=== PATIENT | male | born 1960 | race Hispanic/Latino ===

== ENCOUNTER 2017-10-24 06:55 | Inpatient (IN) | payer BC ==
[2017-10-24 06:57] VITALS: BMI 27.8
--- NOTE | 2017-10-24 07:15 | ED PDOC ---
Arrival/HPI - General Chief Complaint: Chest Pain Time Seen by Provider: 10/24/17 07:07 Historian: Patient, Family - History of Present Illness Narrative History of Present Illness (Text): 10/24/17 07:05 Serjio Platt is a 57 year old male, whose past medical history includes atrial fibrillation (on Pradaxa) and hypertension, who presents to the emergency department complaining of chest pain since 1 to 2 hours prior to arrival. Patient reports he woke up fine and as he was watching TV the non-radiating chest pressure began and did not stop. Patient denies fever, shortness of breath , nausea, vomiting, or other complaints. PMD: Dr. larios 10/24/17 15:35 Time/Duration: 1-3 hours Symptom Onset: Sudden Symptom Course: Unchanged Quality: Pressure Activities at Onset: Rest Context: Home Past Medical History - Provider Review Nursing Documentation Reviewed: Yes - Cardiac Hx Pacemaker: Yes (aicd) - Pulmonary Hx Respiratory Disorders: No - Neurological Hx Neurological Disorder: No - HEENT Hx HEENT Disorder: No - Renal Hx Renal Disorder: No - Endocrine/Metabolic Hx Endocrine Disorders: No - Hematological/Oncological Hx Blood Disorders: No - Integumentary Hx Dermatological Disorder: No - Musculoskeletal/Rheumatological Hx Musculoskeletal Disorders: No - Gastrointestinal Hx Gastrointestinal Disorders: No - Genitourinary/Gynecological Hx Genitourinary Disorders: No - Psychiatric Hx Psychophysiologic Disorder: No Hx Substance Use: No - Surgical History Hx Joint Replacement: Yes (left hip) - Anesthesia Hx Anesthesia: No Family/Social History - Physician Review Nursing Documentation Reviewed: Yes Family/Social History: Unknown Family HX Smoking Status: Unknown If Ever Smoked Hx Alcohol Use: No Hx Substance Use: No Allergies/Home Meds Allergies/Adverse Reactions: Allergies No Known Allergies Allergy (Verified 10/24/17 12:05) Home Medications: Home Meds Medication Instructions Recorded Confirmed Unobtainable 10/24/17 10/24/17 Review of Systems - Review of Systems Constitutional: absent: Fevers Respiratory: absent: SOB, Cough Cardiovascular: Chest Pain (pressure) Gastrointestinal: absent: Abdominal Pain, Diarrhea, Nausea, Vomiting Genitourinary Male: absent: Dysuria Musculoskeletal: absent: Back Pain Neurological: absent: Headache Endocrine: absent: Diaphoresis Physical Exam Vital Signs Reviewed: Yes Vital Signs Temp Pulse Resp BP Pulse Ox 10/24/17 12:00 97 F L 78 20 128/91 H 10/24/17 10:52 76 136/94 H 10/24/17 10:03 64 16 136/94 H 98 10/24/17 09:43 67 16 135/91 H 98 10/24/17 08:00 66 18 140/90 98 10/24/17 07:10 97.9 F 77 24 140/92 H 100 Blood Pressure: Hypertensive Pulse: Regular Respiratory Rate: Normal Appearance: Positive for: Well-Appearing, Non-Toxic, Comfortable Pain Distress: None Mental Status: Positive for: Alert and Oriented X 3 - Systems Exam Head: Present: Atraumatic, Normocephalic Pupils: Present: PERRL Extroacular Muscles: Present: EOMI Conjunctiva: Present: Normal Mouth: Present: Moist Mucous Membranes Respiratory/Chest: Present: Clear to Auscultation, Good Air Exchange. No: Respiratory Distress, Accessory Muscle Use Cardiovascular: Present: Regular Rate and Rhythm, Normal S1, S2. No: Murmurs Neurological: Present: GCS=15, CN II-XII Intact, Speech Normal Skin: Present: Warm, Dry, Normal Color. No: Rashes Psychiatric: Present: Alert, Oriented x 3, Normal Insight, Normal Concentration Medical Decision Making ED Course and Treatment: 10/24/17 EKG: Ordered, reviewed, and independently interpreted the EKG. Rate : 72 BPM Rhythm : atrial fibrillation Interpretation : No ST-segment elevations or depressions, no T-wave inversions, normal intervals. 10/24/17 08:[address] Larios who accepts patient for chest pain observation. 10/24/17 08:30 Chest X-ray: Creator : Diego Villar MD FINDINGS: LUNGS: No active pulmonary disease. PLEURA: No significant pleural effusion identified, no pneumothorax apparent. CARDIOVASCULAR: No radiographic findings to suggest acute or significant cardiovascular disease. Position/ configuration of pacemaker\AICD device: Satisfactory. OSSEOUS STRUCTURES: No significant abnormalities. VISUALIZED UPPER ABDOMEN: Normal. OTHER FINDINGS: None. IMPRESSION: No active disease. - Lab Interpretations Lab Results: 10/24/17 07:05 10/24/17 07:05 Lab Results 10/24/17 07:05: Sodium 140, Potassium 3.9, Chloride 103, Carbon Dioxide 23, Anion Gap 17, BUN 21, Creatinine 0.9, Est GFR ( Amer) > 60, Est GFR (Non- Af Amer) > 60, Random Glucose 170 H, Calcium 10.0, Magnesium 1.7, Total Bilirubin 0.6, AST 26, ALT 23, Alkaline Phosphatase 65, Lactate Dehydrogenase 490, Total Creatine Kinase 45, Troponin I 0.03, Total Protein 7.2, Albumin 4.2, Globulin 3.0, Albumin/Globulin Ratio 1.4 10/24/17 07:05: PT 13.2 H, INR 1.20 H, APTT 24.2 L 10/24/17 07:05: WBC 10.3, RBC 4.93, Hgb 15.1, Hct 45.1, MCV 91.5, MCH 30.6, MCHC 33.5, RDW 12.7, Plt Count 284, MPV 9.6, Gran % 55.9, Lymph % (Auto) 33.5, Weber % (Auto) 6.8 H, Eos % (Auto) 3.4, Baso % (Auto) 0.4, Gran # 5.75, Lymph # 3.5 H, Weber # 0.7 H, Eos # 0.4, Baso # 0.04 I have reviewed the lab results: Yes - RAD Interpretation Radiology Orders: 10/24/17 07:12 CHEST PORTABLE [RAD] Stat [employer]: Radiologist - EKG Interpretation Interpreted by ED Physician: Yes Type: 12 lead EKG - Medication Orders Current Medication Orders: Acetaminophen (Tylenol 325mg Tab) 650 mg PO Q6H PRN PRN Reason: Fever >100.4 F Aspirin (Aspirin Chewable) 81 mg PO DAILY [facility] Atorvastatin Calcium (Lipitor) 20 mg PO DIN SARAH Clopidogrel Bisulfate (Plavix) 75 mg PO DAILY [facility] Heparin Sodium/Dextrose (Heparin 25,000 Units/250ml In D5w) 25,000 units in 250 mls @ 13.608 mls/hr IV .[id number] PRN; Protocol; 15 UNITS/KG/HR PRN Reason: ADJUST RATE PER PROTOCOL Last Admin: 10/24/17 09:42 Dose: 15 units/kg/hr, 13.608 mls/hr eMAR Start Stop Document 10/24/17 09:42 YP (Rec: 10/24/17 09:42 YP [id number]) Intravenous Solution Start Date 12/11/17 Start Time 09:42 Titration Intervention Document 12/11/17 09:42 YP (Rec: 10/24/17 09:42 YP [id number]) Titration Intake Waste Amount 0 Container Volume 250 Titration Dosing Titration Dose 15 IV Rate 13.608 Intake/Decrease Started Lisinopril (Zestril) 10 mg PO DAILY [facility] Last Admin: 10/24/17 10:52 Dose: 10 mg MAR Pulse and Blood Pressure Document 10/24/17 10:52 SC (Rec: 10/24/17 10:52 SC [facility]) Pulse Pulse Rate (60-90) 76 Blood Pressure Blood Pressure (100/60-150/90) 136/94 Nitroglycerin (Nitro-Bid 2% Oint) 1 ea TOP Q4H [facility] Last Admin: 10/24/17 13:27 Dose: 1 ea Sotalol HCl (Betapace) 80 mg PO BID [facility] Last Admin: 10/24/17 10:52 Dose: Discontinued Medications Aspirin (Aspirin) 325 mg PO STAT STA Stop: 10/24/17 07:14 Last Admin: 10/24/17 07:37 Dose: 325 mg Clopidogrel Bisulfate (Plavix) 300 mg PO ONCE ONE Stop: 10/24/17 09:16 Last Admin: 10/24/17 09:42 Dose: 300 mg Nitroglycerin (Nitrostat Sl Tab) 0.4 mg SL STAT STA Stop: 10/24/17 08:00 Last Admin: 10/24/17 08:06 Dose: 0.4 mg - Scribe Statement The provider has reviewed the documentation as recorded by the Jana Joyner Provider Scribe Attestation: All medical record entries made by the Jana were at my direction and personally dictated by me. I have reviewed the chart and agree that the record accurately reflects my personal performance of the history, physical exam, medical decision making, and the department course for this patient. I have also personally directed, reviewed, and agree with the discharge instructions and disposition. Disposition/Present on Arrival - Present on Arrival Any Indicators Present on Arrival: No History of DVT/PE: No History of Uncontrolled Diabetes: No Urinary Catheter: No History of Decub. Ulcer: No History Surgical Site Infection Following: None - Disposition Have Diagnosis and Disposition been Completed?: Yes Diagnosis: Chest pain Disposition: HOSPITALIZED Disposition Time: 15:36 Condition: STABLE
[2017-10-24 07:22] LABS: BASO # 0.04 K/mm3 (0.0-2.0); BASO % 0.4 % (0.0-3.0); EOS # 0.4 (0.0-0.7); EOS % 3.4 % (1.5-5.0); GRAN # 5.75 (1.4-6.5); GRAN % 55.9 % (50.0-68.0); HEMATOCRIT 45.1 % (42.0-52.0); LYMPH # 3.5 (1.2-3.4); LYMPH % 33.5 % (22.0-35.0); MEAN CELL VOLUME 91.5 fl (80.0-105.0); MEAN CORPUSCULAR HEMOGLOBIN 30.6 pg (25.0-35.0); MEAN CORPUSCULAR HGB CONC 33.5 g/dl (31.0-37.0); MEAN PLATELET VOLUME 9.6 fl (7.0-11.0); MONO # 0.7 (0.1-0.6); MONO % 6.8 % (1.0-6.0); RED CELL DISTRIBUTION WIDTH 12.7 % (11.5-14.5); WHITE BLOOD COUNT 10.3 10^3/ul (4.5-11.0)
[2017-10-24 07:41] LABS: INR 1.2 (0.93-1.08); PARTIAL THROMBOPLASTIN TIME 24.2 Seconds (25.1-36.5)
[2017-10-24 07:42] LABS: ALB/GLOB RATIO 1.4 (1.1-1.8); ALKALINE PHOSPHATASE 65 U/L (38-126); ALT/SGPT 23 U/L (7-56); AST/SGOT 26 U/L (17-59); BILIRUBIN,TOTAL 0.6 mg/dL (0.2-1.3); BLOOD UREA NITROGEN 21 mg/dL (7-21); CARBON DIOXIDE 23 mmol/L (21-33); CHLORIDE 103 mmol/L (98-107); GFR AFRICAN-AMERICAN > 60; GLUCOSE,RANDOM 170 mg/dL (70-110); MAGNESIUM 1.7 mg/dL (1.7-2.2); POTASSIUM 3.9 mmol/L (3.6-5.0); SODIUM 140 mmol/L (132-148); TOTAL PROTEIN 7.2 g/dL (5.8-8.3)
[2017-10-24 07:52] LABS: TROPONIN I 0.03 ng/mL
--- NOTE | 2017-10-24 08:25 | RAD ---
HISTORY: Chest pain. Portable study 07:23 COMPARISON: No prior. FINDINGS: LUNGS: No active pulmonary disease. PLEURA: No significant pleural effusion identified, no pneumothorax apparent. CARDIOVASCULAR: No radiographic findings to suggest acute or significant cardiovascular disease. Position/ configuration of pacemaker device: Satisfactory. OSSEOUS STRUCTURES: No significant abnormalities. VISUALIZED UPPER ABDOMEN: Normal. OTHER FINDINGS: None. IMPRESSION: No active disease.
[2017-10-24 09:09] LABS: PH,URINE 5.5 (4.7-8.0); URINE BILIRUBIN NEGATIVE (NEGATIVE); URINE BLOOD NEGATIVE (NEGATIVE); URINE GLUCOSE (UA) NEGATIVE (NEGATIVE); URINE KETONE NEGATIVE (NEGATIVE); URINE LEUKOCYTE ESTERASE NEGATIVE Leu/uL (NEGATIVE); URINE PROTEIN 30 mg/dL (<30 mg/dL); URINE UROBILINOGEN 0.2 E.U./dL (<1 E.U./dL)
[2017-10-24 09:10] LABS: URINE APPEARANCE CLEAR (CLEAR); URINE COLOR YELLOW (YELLOW)
[2017-10-24 09:15] LABS: URINE AMORPHOUS SEDIMENT TRACE; URINE BACTERIA MANY (NEG); URINE RBC 0 - 2 /hpf (0-2); URINE WBC 0 - 2 /hpf (0-6)
[2017-10-24] MEDS: Heparin 25,000units in D5W 25,000 UNITS/250 ML BAG IV PRN (09:42)
[2017-10-24] MEDS: Nitroglycerin 2% Ointment Foilpak UD TOP SCH ×4 (09:42→22:01)
--- NOTE | 2017-10-24 11:42 | CON ---
DATE: 10/24/2017 INDICATIONS: Chest pain, rule out myocardial infarction. HISTORY OF PRESENT ILLNESS: This is a 57-year-old male known to me, admitted through the emergency room this morning after he came in complaining of short history of mid chest discomfort, described as a pressure discomfort. It felt uncomfortable. It was not associated with shortness of breath or diaphoresis. It did not radiate. He came to the emergency room. He was given nitroglycerin with moderate relief. There was still some residual discomfort at this time in the emergency room. There was no shortness of breath, orthopnea, PND, syncope, presyncope, lightheadedness, dizziness, vertigo, palpitations, edema, claudication, fever, chills, cough, sputum production, hemoptysis, abdominal pain, nausea, vomiting, diarrhea, constipation, or melena. About a month ago, he underwent a left total hip replacement. This apparently was an uncomplicated procedure. He took Lovenox for a few weeks and then switched over to Pradaxa, beginning yesterday. He has known coronary artery disease with remote coronary interventions. He has an ICD with a history of myocardial infarction with LV dysfunction, chronic atrial fibrillation, on Pradaxa, osteoarthritis, right knee surgery, hyperlipidemia, recent left total hip replacement. There was no history of congestive heart failure, stroke, TIA, diabetes, or gout. MEDICATIONS: At the time of admission include aspirin, sotalol, lisinopril, Pradaxa, Pravachol. ALLERGIES: THERE WERE NO MEDICATION ALLERGIES. SOCIAL HISTORY: He lives at home. He is ambulatory. He does not smoke cigarettes. He does not drink alcohol significantly. FAMILY HISTORY: Noncontributory. REVIEW OF SYSTEMS: Ten-point review of systems otherwise unremarkable, except as noted above. PHYSICAL EXAMINATION: GENERAL: He is a well-developed male, lying on a stretcher in the emergency room in the presence of his . VITAL SIGNS: Unremarkable. He is in atrial fibrillation at 66 beats per minute. Temperature 97.9, blood pressure 140/90, respirations 18, and O2 sat 98% on room air. HEENT: Reveals no neck vein distention, thyromegaly, or carotid bruit. Mucous membranes moist. Conjunctivae pink. NECK: Supple. LUNGS: [place] are clear throughout. HEART: Reveals normal first and second heart sounds. There was an irregular rhythm. Soft systolic murmur along the left sternal border. PMI not displaced. ABDOMEN: Soft. Bowel sounds are present. No mass, organomegaly, tenderness, rebound, guarding, CVA tenderness, or palpable abdominal aortic aneurysm. EXTREMITIES: Reveals no cyanosis, clubbing, or edema. NEUROLOGIC: Awake, alert, and oriented. PSYCHIATRIC: Normal as to mood and affect. SKIN: Warm and dry. No rash or cellulitis. LABORATORY DATA AND IMAGING: An EKG demonstrates atrial fibrillation with a paced beat, there was poor R-wave progression. T-waves are peaked in leads V2, V3, V4. No ST depressions noted. Compared with old office EKG, there were only minor differences in the V2, V3, and V4 leads, consistent with an old inferior and old anteroseptal myocardial infarction. A chest x-ray reveals no active disease. CBC is unremarkable. PT, INR, and PTT are 13.2, 1.2, and 24.2 respectively. Electrolytes, BUN, creatinine unremarkable. Random blood sugar 170, magnesium 1.7. LFTs normal. CK 45, troponin 0.03. IMPRESSION: Serjio Platt is a 57-year-old man with known coronary artery disease, status post remote coronary interventions, admitted with chest pain, which is consistent with ischemic origin. The initial troponin is negative. His electrocardiogram is abnormal, but not much different than prior office electrocardiogram. He has a recent uneventful left hip replacement and chronic atrial fibrillation on Pradaxa (dose taken this AM) with implantable cardioverter-defibrillator in place. He will be admitted to a telemetry bed. He got aspirin and sublingual nitroglycerin. I will give him Nitropaste. I will resume his sotalol, atorvastatin in lieu of pravastatin, lisinopril. I will give him Plavix 300 mg and 75 mg daily starting tomorrow. I will put him on heparin drip without bolus since he had a dose of Pradaxa today. I will review his office records. We will repeat his troponin level in several hours and in the morning. At this point, I am considering early cardiac catheterization, but given his recent Pradaxa dose, we will try to wait till Tuesday morning if he remains stable. If his troponins are elevated, we may consider earlier intervention. I will get an echocardiogram. We will monitor stool for occult blood. We will monitor I's and O's and daily labs. He can be out of bed to chair. I will give him Nitropaste. I will follow along with you. I will make additional recommendations based on his clinical course. Derick Mcelroy MD MTDD
[2017-10-24] MEDS ORDERED: Pneumococcal 23-Valent Vaccine IM ONE (16:55)
[2017-10-24] MEDS ORDERED: Influenza Vaccine 60 mcg/0.5 mL SYR (4YR UP) IM ONE (16:55)
--- NOTE | 2017-10-25 00:31 | CARD ---
APPROVED REPORT EKG Measurement Heart [id number] <Conclusion> Atrial fibrillation with premature ventricular or aberrantly conducted complexes Inferior infarct, age undetermined Anteroseptal infarct, age undetermined Abnormal ECG
[2017-10-25] MEDS: Nitroglycerin 2% Ointment Foilpak UD TOP SCH ×2 (00:48→04:56)
[2017-10-25] MEDS: Heparin 25,000units in D5W 25,000 UNITS/250 ML BAG IV PRN ×2 (02:03→21:43)
--- NOTE | 2017-10-25 02:29 | HP ---
HISTORY OF PRESENT ILLNESS: The patient is a 57-year-old known to me from office practice, came to emergency room because of chest pressure. He states around 6 o'clock this morning, he was watching TV, he had a little bowl of cereal, started to have chest discomfort, never had this discomfort before associated with shortness of breath and it was very uncomfortable feeling. Denies any nausea or vomiting. There was no diaphoresis. He was given nitroglycerin in the emergency room with some relief. No history of fever or chills. No history of cough or congestion. PAST MEDICAL HISTORY: Significant for: 1. Chronic AFib. 2. Defibrillator replacement. 3. History of left hip replacement. 4. He had defibrillator placed because of LV function and poor ejection fraction. ALLERGIES: HE IS NOT ALLERGIC TO ANY MEDICATIONS. MEDICATION AT HOME: He is on Pradaxa and sotalol 120 b.i.d. He is on Viagra 50 mg daily, lisinopril 10 mg daily, and Percocet as needed. SOCIAL HISTORY: Denies smoking or drinking. socially drink. REVIEW OF SYSTEMS: Significant for chest discomfort. PHYSICAL EXAMINATION: GENERAL: He is alert, awake, oriented, and communicative. VITAL SIGNS: Afebrile, pulse 70, respirations 20, and blood pressure 128/91. LUNGS: Bilateral good airflow. No rhonchi or crackle. HEART: S1 and S2 audible. ABDOMEN: Soft, obese, and nontender. No rebound. No guarding. NEUROLOGIC: The patient is awake, alert, oriented, and communicative. LABORATORY DATA: WBC is 10.3, hemoglobin is 15.1, hematocrit is 45.1, and platelet of 284. PTT is 73.3. Chemistry, troponin first one is 0.03, follow up is 1.08. Sodium 140, potassium 3.9, chloride 103, CO2 of 23, BUN 21, creatinine 0.9, and blood sugar 170. LFTs are within normal limits. Urinalysis is unremarkable. X-ray of chest is negative for any infiltrate. ASSESSMENT: 1. Non-ST elevation myocardial infarction with positive troponin. 2. History of myocardial infarction in the past with defibrillator replacement. 3. Chronic atrial fibrillation. 4. Hypertension. 5. Recent left hip replacement. PLAN: The patient is currently on aspirin. He is on sotalol 80 mg twice a day. Currently, he is on heparin, statins and I have started him on nitrates. He is on Plavix and add Protonix. Continue on lisinopril and follow up this patient in a.m. Sadia Larios MD
[2017-10-25] MEDS ORDERED: Benzocaine/Menthol (Cepacol) Lozenge MT STA (03:22)
[2017-10-25] MEDS: Pantoprazole 40 mg EC Tab PO SCH (05:28)
[2017-10-25 07:24] LABS: TROPONIN I 11.9 ng/mL
--- NOTE | 2017-10-25 07:56 | CARD ---
APPROVED REPORT EXAM: Two-dimensional and M-mode echocardiogram with Doppler and color Doppler. Other Information Quality : AverageRhythm : INDICATION Chest Pain 2D DIMENSIONS Left Atrium (2D)4.0 (1.6-4.0cm)IVSd1.2 (0.7-1.1cm) LVDd5.3 (3.9-5.9cm)PWd1.2 (0.7-1.1cm) LVDs4.4 (2.5-4.0cm)FS (%) 15.4 % LVEF (%)32.0 (>50%) M-Mode DIMENSIONS Aortic Root3.60 (2.2-3.7cm)Aortic Cusp Exc.1.90 (1.5-2.0cm) Aortic Valve AoV Peak Prqqvqne851.0cm/s Mitral Valve E/A ratio0.0 TDI E/Lateral E'0.0E/Medial E'0.0 Pulmonary Valve PV Peak Fztxptcl70.8cm/sPV Peak Grad.1mmHg Tricuspid Valve TR Peak Ppayctks978xf/sRAP [id number] Peak Gr.15mmHg [id number] LEFT VENTRICLE The left ventricle is normal size. There is normal left ventricular wall thickness. Left ventricle systolic function is mildly to moderately impaired. The Ejection Fraction is 30-35%. The apical segment is akinetic RIGHT VENTRICLE There is a pacemaker/ICD lead in the right ventricle. ATRIA The left atrium size is normal. The right atrium size is normal. The interatrial septum is intact with no evidence for an atrial septal defect. AORTIC VALVE The aortic valve is normal in structure. MITRAL VALVE The mitral valve is normal in structure. Mitral regurgitation is mild. TRICUSPID VALVE The tricuspid valve is normal in structure. There is trace tricuspid regurgitation. PULMONIC VALVE The pulmonary valve is normal in structure. GREAT VESSELS The aortic root is normal in size. PERICARDIAL EFFUSION There is no pericardial effusion. <Conclusion> The left ventricle is normal size. There is normal left ventricular wall thickness. Left ventricle systolic function is mildly to moderately impaired. The Ejection Fraction is 30-35%. The apical segment is akinetic Mitral regurgitation is mild. There is trace tricuspid regurgitation.
--- NOTE | 2017-10-25 08:14 | CP.PCM.PN ---
Subjective - Date & Time of Evaluation Date of Evaluation: 10/25/17 Time of Evaluation: 07:00 - Subjective Subjective: Stable on 2R. He feels well except for TODD due to nitrates. NO CP or SOB. V/S noted. AF PE: Lungs: clear Cor: irreg, S1S2 bd.: soft Ext.: no edema Neuro.: alert I/O N/A Echo: Mild/mod LVD with apical akinesis c/e infarct. See report Labs noted: trop today 11.9, PTT= 68.2 Objective - Vital Signs/Intake and Output Vital Signs (last 24 hours): Temp Pulse Resp BP Pulse Ox 98.2 F 92 H 18 136/69 97 10/25/17 05:56 10/25/17 05:57 10/25/17 05:56 10/25/17 05:56 10/25/17 05:56 Intake and Output: 10/25/17 10/25/17 06:59 18:59 Intake Total 593 Balance 593 - Medications Medications: Current Medications Acetaminophen (Tylenol 325mg Tab) 650 mg PO Q6H PRN PRN Reason: Fever >100.4 F Last Admin: 10/25/17 04:34 Dose: 650 mg Acetaminophen (Tylenol 325mg Tab) 650 mg PO Q6H PRN PRN Reason: Fever >100.4 F Aspirin (Aspirin Chewable) 81 mg PO DAILY [facility] Atorvastatin Calcium (Lipitor) 20 mg PO DIN [facility] Last Admin: 10/24/17 17:53 Dose: 20 mg Clopidogrel Bisulfate (Plavix) 75 mg PO DAILY [facility] Heparin Sodium/Dextrose (Heparin 25,000 Units/250ml In D5w) 25,000 units in 250 mls @ 13.608 mls/hr IV .[id number] PRN; Protocol; 15 UNITS/KG/HR PRN Reason: ADJUST RATE PER PROTOCOL Last Admin: 10/25/17 02:03 Dose: 15 units/kg/hr, 13.608 mls/hr Lisinopril (Zestril) 10 mg PO DAILY [facility] Last Admin: 10/24/17 10:52 Dose: 10 mg Nitroglycerin (Nitro-Bid 2% Oint) 1 ea TOP Q4H [facility] Last Admin: 10/25/17 04:56 Dose: Not Given Ondansetron HCl (Zofran Inj) 4 mg IVP Q6H PRN PRN Reason: Nausea/Vomiting Pantoprazole Sodium (Protonix Ec Tab) 40 mg PO 0600 [facility] Last Admin: 10/25/17 05:28 Dose: 40 mg Sotalol HCl (Betapace) 80 mg PO BID [facility] Last Admin: 10/24/17 17:53 Dose: 80 mg - Labs Labs: PT 13.2 SECONDS (9.4-12.5) H 10/24/17 07:05 INR 1.20 (0.93-1.08) H 10/24/17 07:05 APTT 68.2 Seconds (25.1-36.5) H 10/25/17 05:30 Assessment and Plan - Assessment and Plan (Free Text) Assessment: CP/NSTEMI/ probably apical infarct H/O CAD/UT/LVD/ICD Chronic AF on Pradaxa, last dose 12 AM S/P recent Left THR Remote right knee surgery Plan: Check ECG today Continue tel OOB to chair/BR priv. D/C nitrates Heparin by PTT's Continue: ASA, Plavix, Lisinopril, atorvastatin, sotolol Cardiac cath/possible PCI tomorrow AM. NPO after MN, except meds. Additional recs to follow cath.
--- NOTE | 2017-10-25 17:35 | CARD ---
APPROVED REPORT EKG Measurement Heart [id number] <Conclusion> Atrial fibrillation Left axis deviation Inferior infarct, age undetermined Anteroseptal infarct, age undetermined Abnormal ECG
--- NOTE | 2017-10-25 23:08 | PN ---
DATE: SUBJECTIVE: The patient is an 57-year-old, seen and examined, lying in bed, seems to be comfortable. No chest pain. No shortness of breath. Eating and tolerating. PHYSICAL EXAMINATION VITAL SIGNS: He is afebrile, pulse 82, respirations 20, blood pressure 112/86. LUNGS: Bilateral good airflow. No rhonchi or crackle. HEART: S1 and S2 audible. Irregular rate control. ABDOMEN: Soft, nontender. No rebound. No guarding. NEUROLOGIC: He is awake, alert, oriented, communicative. EXTREMITIES: Walks with cane since he has recent left total hip replacement. LABORATORY DATA: His PTT is 68.2. Chemistries; troponin is 11.90. ASSESSMENT: 1. Non-ST elevation myocardial infarction. 2. Hypertension. 3. Hyperlipidemia. 4. Chronic atrial fibrillation. PLAN: Currently, the patient is on aspirin 81 daily, sotalol 80 mg twice a day. He is getting heparin. He is on atorvastatin and he is being scheduled for cardiac cath in a.m. Sadia Larios MD
[2017-10-26] MEDS: Pantoprazole 40 mg EC Tab PO SCH (05:54)
[2017-10-26 06:29] LABS: BASO # 0.05 K/mm3 (0.0-2.0); BASO % 0.5 % (0.0-3.0); EOS # 0.2 (0.0-0.7); EOS % 1.7 % (1.5-5.0); GRAN # 7.42 (1.4-6.5); GRAN % 66.9 % (50.0-68.0); HEMATOCRIT 43.6 % (42.0-52.0); LYMPH # 2.6 (1.2-3.4); LYMPH % 23.3 % (22.0-35.0); MEAN CELL VOLUME 92.2 fl (80.0-105.0); MEAN CORPUSCULAR HEMOGLOBIN 31.3 pg (25.0-35.0); MEAN CORPUSCULAR HGB CONC 33.9 g/dl (31.0-37.0); MEAN PLATELET VOLUME 9.9 fl (7.0-11.0); MONO # 0.8 (0.1-0.6); MONO % 7.6 % (1.0-6.0); RED CELL DISTRIBUTION WIDTH 12.7 % (11.5-14.5); WHITE BLOOD COUNT 11.1 10^3/ul (4.5-11.0)
[2017-10-26 06:41] LABS: INR 1.22 (0.93-1.08); PARTIAL THROMBOPLASTIN TIME 63.1 Seconds (25.1-36.5)
[2017-10-26 06:54] LABS: TROPONIN I 6.25 ng/mL
[2017-10-26 07:02] LABS: BLOOD UREA NITROGEN 16 mg/dL (7-21); CALCIUM 9.8 mg/dL (8.4-10.5); CARBON DIOXIDE 30 mmol/L (21-33); CHLORIDE 103 mmol/L (98-107); GFR AFRICAN-AMERICAN > 60; GLUCOSE,RANDOM 108 mg/dL (70-110); POTASSIUM 3.7 mmol/L (3.6-5.0); SODIUM 139 mmol/L (132-148)
[2017-10-26] MEDS ORDERED: Iodixanol 320 MG/ML 200 ML BOTTLE IV ONE (09:09)
[2017-10-26] MEDS ORDERED: Lidocaine 2% Inj (20ml) ONE (09:09)
[2017-10-26] MEDS ORDERED: Iohexol 350mgl/ml 50 ML ONE (09:22)
[2017-10-26] MEDS ORDERED: Phenylephrine 10 mg/ml Inj ONE (09:22)
[2017-10-26] MEDS ORDERED: Iodixanol 320 MG/ML 100 ML BOTTLE IV ONE (09:22)
[2017-10-26] MEDS ORDERED: Midazolam 2 MG/2 ML VIAL ONE ×2 (09:41→09:46)
[2017-10-26] MEDS ORDERED: Nitroglycerin 50mg in D5W 50 MG/250 ML BOTTLE IV ONE (10:09)
[2017-10-26] MEDS ORDERED: Sodium Chloride 0.9% 1,000 ML IV SCH (11:00)
--- NOTE | 2017-10-26 14:15 | CARDCATH ---
PROCEDURE DATE: 10/26/2017 PROCEDURES: 1. Selective left and right coronary angiography. 2. Left ventriculography. 3. PCI of mid LAD with drug-eluting stents. 4. Right femoral arteriography. 5. Mynx deployment. HISTORY: This is a 57-year-old man with known coronary artery disease, status post prior PCI, admitted with non-ST segment elevation myocardial infarction. Cardiac catheterization was recommended. INDICATION: Non-ST segment elevation myocardial infarction. FINDINGS: HEMODYNAMICS: The aortic pressure was 120/76, left ventricular pressure 120/15. CORONARY ANATOMY: 1. The left main stem was normal. 2. Left anterior descending artery had mild disease proximally and had a complex in-stent restenosis in the mid vessel. Takeoff of the first diagonal branch was also involved. The first diagonal branch was euzyr-bv-pulgssrd size vessel with 50% stenosis in its proximal segment. 3. There was poor filling of the distal LAD and distal lesions cannot be excluded. 4. The left circumflex artery and its branches had no significant disease. 5. The right coronary artery and its branches had no significant disease either and the coronary circulation was codominant. LEFT VENTRICULOGRAPHY: Hand injection was performed in the left ventricle revealing mildly reduced LV systolic function with apical hypokinesis and overall ejection fraction 45%. CORONARY INTERVENTION: Given the above findings, attempted PCI of the mid LAD was then performed. Total of 5000 units of intravenous heparin was administered and ACT was rated at 300 seconds during the procedure. A 3.5 EBU guide catheter was utilized and the lesion in the LAD successfully crossed with the use of a [place] wire. Following this, initial inflations were performed within the previously placed stent with the use of 3.0 x 12 mm NC Sprinter balloon. Following this, a 3.0 x 22 mm Resolute drug-eluting stent was advanced into the stented segment. This was positioned in the more distal area of the prior stents. This was inflated to 14 atmospheres. Following this, the stent balloon was removed and the prior 3.0 x 12 mm NC balloon was advanced and multiple inflations performed within the stented segment to 16 atmospheres. There was 0% residual stenosis following the intervention. LÓPEZ grade 3 flow was present at the end of the procedure. The diagonal branch did appear to be somewhat impinged, but LÓPEZ grade 3 flow was low. A wire was advanced into the diagonal and attempts were made to advance the 2.0 x 12 mm balloon through the stent struts into the diagonal; however, this was not possible as the balloon could not cross through the stent segment. RIGHT FEMORAL ARTERIOGRAM: A right femoral arteriogram was performed in the [place]EB[place] projection. This revealed no evidence of significant disease. The puncture site was at the appropriate level and this was then closed with deployment of a Mynx device. CONCLUSION: 1. Severe in-stent restenosis of mid LAD, successfully treated with placement of an additional 3.0 x 22 mm Resolute drug-eluting stent. 2. Mildly reduced LV systolic function. RECOMMENDATIONS: At this time, aspirin and Plavix therapy will be continued for the next several months. He does have paroxysmal atrial fibrillation, has been treated with Pradax. This can be resumed and after 3 months, he would be advised to discontinue his aspirin and continue Plavix and Pradaxa together, indefinite, Plavix use would be appropriate given multiple stents in the LAD at this time. Joe Turner MD
--- NOTE | 2017-10-26 15:59 | PN ---
DATE: SUBJECTIVE: The patient is a 57-year-old seen and examined, came back from cardiac cath, still sedated. No complaint of shortness of breath and no chest pain. PHYSICAL EXAMINATION: VITAL SIGNS: He is afebrile, pulse 87, respirations 20, blood pressure 114/62. LUNGS: Bilateral fair airflow. No rhonchi or crackle. HEART: S1 and S2 audible. Regular rate and rhythm.. ABDOMEN: Soft, nontender. No rebound. No guarding. NEUROLOGIC: The patient is awake, alert, oriented, and communicative. LABORATORY DATA: WBC is 11.1, hemoglobin 14, hematocrit 43, and platelet of 207. PTT 63. Chemistry: Sodium 139, potassium 3.7, chloride 103, CO2 30, BUN 16, creatinine 1.0, and blood sugar of 108. ASSESSMENT AND PLAN: 1. Coronary artery disease. 2. Non-ST elevation myocardial infarction. 3. Status post cardiac catheterization and had angioplasty for left anterior descending. 4. Chronic atrial fibrillation, currently in sinus rhythm. 5. Recent left total hip replacement. PLAN: The patient is currently on aspirin, sotalol, and atorvastatin. I will continue him on Plavix. He will get IV fluid. We will monitor his CBC and CMP in a.m. Since he is in sinus rhythm, we will hold off Pradaxa. He can resume from tomorrow. He will be on Plavix, Pradaxa, and aspirin for 3 months and after that, Plavix will be stopped and he will be on Pradaxa and aspirin ongoing. If the patient remains stable, discharge plan . Sadia Larios MD
--- NOTE | 2017-10-26 17:31 | PN ---
DATE: 10/26/2017 SUBJECTIVE: The patient is seen lying in bed on telemetry. He is currently comfortable. He had no chest pain overnight. He is scheduled for cardiac catheterization later today. CURRENT MEDICATIONS: Include aspirin, Plavix, Betapace, Lipitor, Protonix, Zestril, Zofran, and IV heparin. OBJECTIVE: GENERAL: He is a middle-aged man who appears comfortable at the present time. VITAL SIGNS: Blood pressure is 110/76 with a pulse of 82, in atrial fibrillation, respirations are 14. He is afebrile. HEENT: He had no JVD. CHEST: Few scattered rhonchi heard. HEART: PMI displaced laterally. Systolic murmurs heard at the left sternal border. ABDOMEN: Soft and nontender with bowel sounds. EXTREMITIES: No edema. DIAGNOSTIC DATA: Potassium is 3.7, BUN and creatinine 16 and 1.0, troponin 6.25, hemoglobin and hematocrit 14.8 and 43.6, white count of 11.1, platelet count 207,000. PTT was 63.1. IMPRESSION: 1. Recent non-ST segment elevation myocardial fraction, known coronary artery disease, status post prior percutaneous coronary intervention of left anterior descending artery. 2. Paroxysmal atrial fibrillation. 3. History of hyperlipidemia. 4. History of left ventricular dysfunction, significantly improved, status post implantable cardioverter-defibrillator implant. RECOMMENDATIONS: The patient will undergo cardiac catheterization with possible PCI today depending upon his coronary anatomy. Further recommendations will be made based upon those results. Joe Turner MD
[2017-10-26] MEDS: Oxycodone/Acetaminophen 5/325 mg Tab PO PRN (19:34)
--- NOTE | 2017-10-26 23:21 | CARD ---
APPROVED REPORT EKG Measurement Heart [id number] <Conclusion> Atrial fibrillation with premature ventricular or aberrantly conducted complexes Left axis deviation Inferior infarct, age undetermined Abnormal ECG
[2017-10-27] MEDS: Oxycodone/Acetaminophen 5/325 mg Tab PO PRN ×2 (00:26→10:30)
[2017-10-27] MEDS: Pantoprazole 40 mg EC Tab PO SCH (05:59)
[2017-10-27 06:54] LABS: BASO # 0.04 K/mm3 (0.0-2.0); BASO % 0.4 % (0.0-3.0); EOS # 0.2 (0.0-0.7); EOS % 2.2 % (1.5-5.0); GRAN # 6.74 (1.4-6.5); GRAN % 61.3 % (50.0-68.0); HEMATOCRIT 43.8 % (42.0-52.0); LYMPH # 3.1 (1.2-3.4); LYMPH % 28.4 % (22.0-35.0); MEAN CELL VOLUME 91.3 fl (80.0-105.0); MEAN PLATELET VOLUME 9.8 fl (7.0-11.0); MONO # 0.9 (0.1-0.6); MONO % 7.7 % (1.0-6.0); RED CELL DISTRIBUTION WIDTH 12.5 % (11.5-14.5)
[2017-10-27 07:21] LABS: BLOOD UREA NITROGEN 15 mg/dL (7-21); CALCIUM 9.4 mg/dL (8.4-10.5); CARBON DIOXIDE 23 mmol/L (21-33); CHLORIDE 103 mmol/L (98-107); GFR AFRICAN-AMERICAN > 60; GLUCOSE,RANDOM 105 mg/dL (70-110); SODIUM 137 mmol/L (132-148)
[2017-10-27 07:47] LABS: TROPONIN I 2.97 ng/mL
--- NOTE | 2017-10-27 08:16 | CP.PCM.PN ---
Subjective - Date & Time of Evaluation Date of Evaluation: 10/27/17 Time of Evaluation: 07:00 - Subjective Subjective: Stable on 2R. S/P cath and mid LAD ISR PCI yesterday, see report. Case D/W Dr. Turner. No CP or SOB but contunued right hip pain since Tuesday. V/S noted. AF PE: Lungs: clear Cor: irreg, S1S2 bd.: soft Ext.: no edema. Groin OK Neuro.: alert I/O 403/750 recorded Echo: Mild/mod LVD with apical akinesis c/e infarct. See report Labs noted: Trop 2.97 ECG 10/26: AF, LAD, PRWP, STTW changes. No change Objective - Vital Signs/Intake and Output Vital Signs (last 24 hours): Temp Pulse Resp BP Pulse Ox 97.9 F 79 18 128/84 98 10/27/17 06:00 10/27/17 06:00 10/27/17 06:00 10/27/17 06:00 10/27/17 06:00 Intake and Output: 10/27/17 10/27/17 06:59 18:59 Intake Total 240 Output Total 750 Balance -510 - Medications Medications: Current Medications Acetaminophen (Tylenol 325mg Tab) 650 mg PO Q6H PRN PRN Reason: Fever >100.4 F Last Admin: 10/25/17 11:35 Dose: 650 mg Aspirin (Aspirin Chewable) 81 mg PO DAILY [facility] Last Admin: 10/26/17 09:01 Dose: Not Given Atorvastatin Calcium (Lipitor) 20 mg PO DIN [facility] Last Admin: 10/26/17 18:08 Dose: 20 mg Clopidogrel Bisulfate (Plavix) 75 mg PO DAILY [facility] Last Admin: 10/26/17 09:02 Dose: Not Given Lisinopril (Zestril) 10 mg PO DAILY [facility] Last Admin: 10/26/17 18:08 Dose: 10 mg Ondansetron HCl (Zofran Inj) 4 mg IVP Q6H PRN PRN Reason: Nausea/Vomiting Oxycodone/Acetaminophen (Percocet 5/325 Mg Tab) 1 tab PO Q4H PRN PRN Reason: Pain, moderate (4-7) Stop: 10/29/17 11:27 Last Admin: 10/27/17 00:26 Dose: 1 tab Pantoprazole Sodium (Protonix Ec Tab) 40 mg PO 0600 [facility] Last Admin: 10/27/17 05:59 Dose: 40 mg Sotalol HCl (Betapace) 80 mg PO BID [facility] Last Admin: 10/26/17 18:08 Dose: 80 mg - Labs Labs: 10/27/17 06:30 10/27/17 06:30 PT 13.5 SECONDS (9.4-12.5) H 10/26/17 05:40 INR 1.22 (0.93-1.08) H 10/26/17 05:40 APTT 63.1 Seconds (25.1-36.5) H 10/26/17 05:40 Assessment and Plan - Assessment and Plan (Free Text) Assessment: Right hip pain, can't ambulate. CP/NSTEMI/ probably apical infarct. S/P LAD stent for severe ISR mid LAD. H/O CAD/WV/LVD/ICD Chronic AF on Pradaxa, last dose 12/11 AM S/P recent Left THR Remote right knee surgery Plan: Evaluate right hip pain, present since pre-cath. Continue: ASA, Plavix, Lisinopril, atorvastatin, sotolol and resume Pradaxa. Plan: D/C ASA at 3 months. Continue Plavix and Pradaxa indefinitely.
[2017-10-27] MEDS: Docusate-Senna 50 mg-8.6 mg Tab PO SCH ×2 (11:43→17:41)
[2017-10-27] MEDS ORDERED: Naproxen 550 mg Tab PO STA (12:13)
[2017-10-27 12:17] VITALS: RESP 20
--- NOTE | 2017-10-27 14:04 | RAD ---
PROCEDURE: Right Hip and pelvis Radiographs. HISTORY: hip pain COMPARISON: None. FINDINGS: BONES: Normal. No fracture. JOINTS: There is a left hip prosthesis in satisfactory alignment. No fracture or loosening. Degenerative changes are seen in the superior acetabulum with bony sclerosis SOFT TISSUES: Normal. OTHER FINDINGS: None. IMPRESSION: Degenerative changes in the superior acetabulum of the right hip.
[2017-10-27 16:44] VITALS: BP 96/56; TEMP 98.2
[2017-10-27 16:50] VITALS: O2SAT 100
[2017-10-27 17:58] VITALS: PULSE 60
--- NOTE | 2017-10-28 05:59 | DS ---
HOSPITAL COURSE: The patient is a 57-year-old who came in with chest pain, has positive troponin, underwent cardiac cath yesterday, and ended up having angioplasty. Today morning, he complained of right hip pain pacing through his right groin, going in the back. His cath site looked okay. There is no hematoma. He had x-ray done and unremarkable. He was given Naprosyn 500 one dose, and he was able to ambulate after that, doing well, and is being discharged today. PHYSICAL EXAMINATION: GENERAL: He is awake, alert, oriented, communicative. VITAL SIGNS: He is afebrile. Pulse 83, respirations 20, blood pressure 118/82. LUNGS: Bilateral good airflow. No rhonchi or crackle. HEART: S1, S2 audible. Irregular, rate controlled. ABDOMEN: Soft, nontender. No rebound. No guarding. NEUROLOGIC: The patient is awake, alert, oriented, communicative. LABORATORY EXAMINATION: WBC is 11, hemoglobin 14.9, hematocrit 43, platelet of 210. PT 13.5, INR 1.22. Chemistry: Sodium 137, potassium 4.0, chloride 103, CO2 of 23, BUN 15, creatinine 0.9, blood sugar of 105. Troponin is 2.97. ASSESSMENT AND PLAN: 1. Coronary artery disease, status post non-ST elevation myocardial infarction. 2. Status post angioplasty, had left anterior descending artery stenting done. 3. Right hip sprain. 4. Status post left total hip replacement. 5. Chronic atrial fibrillation. PLAN: Discussed with Dr. Turner. Will be discharged home on aspirin 81 daily. He will continue sotalol 80 mg twice a day, atorvastatin 20 mg daily. He will be given Plavix 75 daily. He will continue his Pradaxa 150 twice a day, and he will follow up with Dr. Abdi after 3 months. Plavix will be stopped and he will be maintained on Pradaxa. Sadia Larios MD
== END 2017-10-27 22:16 | disposition home or self-care (01) | DRG 247 ==
LOC: ED 06:55 → ERH 08:18 → 2RSO 11:10 → ERH 11:26 → 2RSO 12:30 → OBSVTOIN 10-25 12:41
PROVIDERS: ADMIT Internal Medicine; ATTEND Internal Medicine
PROC: 027034Z Dilation of Coronary Artery, One Artery with Drug-eluting Intraluminal Device, Percutaneous Approach (ICD-10-PCS; principal; 2017-10-26)
PROC: B211YZZ Fluoroscopy of Multiple Coronary Arteries using Other Contrast (ICD-10-PCS; 2017-10-26)
PROC: B215YZZ Fluoroscopy of Left Heart using Other Contrast (ICD-10-PCS; 2017-10-26)
DX: I21.4 Non-ST elevation (NSTEMI) myocardial infarction (principal); I25.10 Atherosclerotic heart disease of native coronary artery without angina pectoris; T82.855A Stenosis of coronary artery stent, initial encounter; I48.2 Chronic atrial fibrillation; I10 Essential (primary) hypertension; Y83.1 Surgical operation with implant of artificial internal device as the cause of abnormal reaction of the patient, or of later complication, without mention of misadventure at the time of the procedure; I48.0 Paroxysmal atrial fibrillation; E78.5 Hyperlipidemia, unspecified; S73.101A Unspecified sprain of right hip, initial encounter; I25.2 Old myocardial infarction; Z96.642 Presence of left artificial hip joint; Z95.810 Presence of automatic (implantable) cardiac defibrillator

== ENCOUNTER 2019-02-03 21:53 | Observation (INO) | payer BC ==
[2019-02-03] MEDS ORDERED: Morphine 4 mg/ml ISec IVP STA (23:11)
[2019-02-03] MEDS ORDERED: Sodium Chloride 0.9% 500 ML IV STA (23:11)
--- NOTE | 2019-02-03 23:11 | ED PDOC ---
Arrival/HPI - General Historian: Patient - History of Present Illness Narrative History of Present Illness (Text): 02/03/19 23:08 58 y/o male, pmh including a.omkar on xarelto/defibrillator with poor EF/NSTEMI/htn, nkda, c/o lower abdominal pain nausea/vomiting/diarrhea started today with no recent traveling. Pt. stated that he woke up this morning with lower abdominal pain, associated with nausea/vomiting/diarrhea, no recent antibiotic use, no chest pain or palpitation, no night sweat, no rash, no dizziness, no change in vision, no other medical or psychological complaints. <Mark Vera - Last Filed: 02/04/19 01:59> <Serjio Gonzalez - Last Filed: 02/04/19 03:42> - General Chief Complaint: GI Problem Past Medical History - Provider Review Nursing Documentation Reviewed: Yes - Cardiac Hx Cardiac Disorders: Yes (CAD,SC) Hx Atrial Fibrillation: Yes Hx Cardiac Arrhythmia: Yes Hx Hypertension: Yes Hx Pacemaker: Yes (aicd) Other/Comment: cardiac stent x2 - Pulmonary Hx Respiratory Disorders: No - Neurological Hx Neurological Disorder: No - HEENT Hx HEENT Disorder: No - Renal Hx Renal Disorder: No - Endocrine/Metabolic Hx Endocrine Disorders: No - Hematological/Oncological Hx Blood Disorders: No - Integumentary Hx Dermatological Disorder: No - Musculoskeletal/Rheumatological Hx Musculoskeletal Disorders: Yes Hx Falls: No Hx Osteoarthritis: Yes Hx Unsteady Gait: Yes (RL TOTAL HIP REPLACED,AMBULATES WITH A CANE,RIGHT KNEE SX,MENICUS TEAR) - Gastrointestinal Hx Gastrointestinal Disorders: No - Genitourinary/Gynecological Hx Genitourinary Disorders: No - Psychiatric Hx Psychophysiologic Disorder: No Hx Substance Use: No - Surgical History Hx Cardiac Catheterization: Yes Hx Joint Replacement: Yes (left hip,RIGHT KNEE SX,) - Anesthesia Hx Anesthesia: No <Mark Vera - Last Filed: 02/04/19 01:59> Family/Social History - Physician Review Nursing Documentation Reviewed: Yes Family/Social History: Unknown Family HX Smoking Status: Never Smoked Hx Alcohol Use: Yes (SOCIALLY) Frequency of alcohol use: Socially Hx Substance Use: No <Mark eVra - Last Filed: 02/04/19 01:59> Allergies/Home Meds <Mark Vera - Last Filed: 02/04/19 01:59> <Serjio Gonzalez - Last Filed: 02/04/19 03:42> Allergies/Adverse Reactions: Allergies No Known Allergies Allergy (Verified 10/24/17 12:05) Home Medications: Home Meds Medication Instructions Recorded Confirmed Enoxaparin [Lovenox] 40 mg SQ DAILY 10/24/17 02/04/19 Ibuprofen [Motrin] 600 mg PO BID PRN 10/24/17 02/04/19 Lisinopril [Zestril] 10 mg PO DAILY 10/24/17 02/04/19 Sildenafil Citrate [Viagra] 50 mg PO PRN PRN 10/24/17 02/04/19 Sotalol [Betapace] 120 mg PO BID 10/24/17 02/04/19 oxyCODONE [oxyCODONE Immediate 5 mg PO Q4 PRN 10/24/17 02/04/19 Release Tab] Review of Systems - Review of Systems Constitutional: absent: Fatigue, Fevers Eyes: absent: Vision Changes ENT: absent: Hearing Changes Respiratory: absent: SOB, Cough Cardiovascular: absent: Chest Pain Gastrointestinal: Abdominal Pain, Diarrhea, Nausea, Vomiting Musculoskeletal: absent: Arthralgias, Back Pain Skin: absent: Rash, Pruritis Neurological: absent: Headache, Dizziness Psychiatric: absent: Anxiety, Depression, Suicidal Ideation <Mark Vera - Last Filed: 02/04/19 01:59> Physical Exam Vital Signs Reviewed: Yes Vital Signs Temp Pulse Resp BP Pulse Ox 02/03/19 22:38 97.6 F 76 18 171/92 H 99 Temperature: Afebrile Blood Pressure: Hypertensive Pulse: Regular Respiratory Rate: Normal Appearance: Positive for: Well-Appearing, Non-Toxic, Comfortable Pain Distress: Moderate Mental Status: Positive for: Alert and Oriented X 3 - Systems Exam Head: Present: Atraumatic, Normocephalic Pupils: Present: PERRL Extroacular Muscles: Present: EOMI Conjunctiva: Present: Normal Mouth: Present: Moist Mucous Membranes Neck: Present: Normal Range of Motion Respiratory/Chest: Present: Clear to Auscultation, Good Air Exchange. No: Respiratory Distress, Accessory Muscle Use Cardiovascular: Present: Regular Rate and Rhythm, Normal S1, S2. No: Murmurs Abdomen: Present: Tenderness (LLQ), Normal Bowel Sounds. No: Distention, Peritoneal Signs, Rebound, Guarding Back: Present: Normal Inspection Upper Extremity: Present: Normal Inspection, Normal ROM, Neurovascularly Intact. No: Cyanosis, Edema Lower Extremity: Present: Normal Inspection, Normal ROM, Neurovascularly Intact, Capillary Refill < 2 s. No: Edema, Tenderness, Swelling, Deformity Neurological: Present: GCS=15, CN II-XII Intact, Speech Normal, Motor Func Grossly Intact, Normal Cerebellar Funct, Gait Normal, Memory Normal Skin: Present: Warm, Dry, Normal Color. No: Rashes Psychiatric: Present: Alert, Oriented x 3, Normal Insight, Normal Concentration <Mark Vera - Last Filed: 02/04/19 01:59> Vital Signs Temp Pulse Resp BP Pulse Ox 02/03/19 22:38 97.6 F 76 18 171/92 H 99 <Serjio Gonzalez - Last Filed: 02/04/19 03:42> Medical Decision Making ED Course and Treatment: 02/03/19 23:14 UTI vs. Colitis vs. Diverticulitis vs. Dehydration -Labs -CT abd/pelvis -IVF/pepcid/zofran/morphine -Observe and reassess 02/04/19 01:00 -BP 187/110, not in pain, clonidine 0.2mg po ordered 02/04/19 01:59 -Labs are non-significant except wbc 12 (afebrile, likely pain and stress induced), Mg 1.5 (mg 1gm IV ordered0 -Trop is negative -Lipase within normal limit. -CT Abd/Pelvis ordered and pending result. -UA ordered and pending specimen -Pt. feells well, pending UA and CT scan result. -Case discussed and endorsed to Dr. Gonzalez to follow up the pending UA and CT abdomen and pelvis, he will dispo the patient. <Mark Vera - Last Filed: 02/04/19 01:59> ED Course and Treatment: CT SCAN OF THE ABDOMEN AND PELVIS WITH CONTRAST. Electronically signed on Feb 04, 2019 2:05:01 AM EDT by: Cherry Harp M.D. IMPRESSION: Mild cardiomegaly. AICD is in good position. Small sliding hiatal hernia. 1.1 cm calcified granuloma of the hepatic dome. Hepatic steatosis is noted. Diffuse colonic diverticulosis. Mild apparent thickening of the sigmoid colon. Probably mild uncomplicated colitis. Multifocal acute left renal infarctions are noted in the upper and mid poles of the left kidney. The largest measures 5.3 x 2.7 cm. Associated complete occlusion of one of the segmental peripheral arterial branches to the midportion of the left kidney. The remaining segmental branches are well patent. Left main renal artery contains moderate calcified atheromatous plaques contributing to moderate stenosis of its origin but this appears chronic without acute occlusion of the left renal artery. There is no evidence of a dissection. Unremarkable left renal vein. EKG shows A-fib at 69 BPM with septal infarct, inferior infarct, non-specific ST/T wave changes. Interpreted by me. 02/04/19 03:20 Case was discussed with Dr. Larios.Results of the CT scan given.Patient to be treated for colitis/IV antibiotics.Finding of Renal infarct/occlusion to be sari ated for now with anticoagulation.Patient and stated that he is only taking Plavix and is no longer on Xarelto stopped a whille back.Stat consult with at request.She agrees with anticoagulation with Lovenox.Renal consult , interventional radiologist consult to follow. - RAD Interpretation Radiology Orders: 02/03/19 23:11 ABD & PELVIS IV CONTRAST ONLY [CT] Stat - Medication Orders Current Medication Orders: Sodium Chloride (Sodium Chloride 0.9%) 500 mls @ 100 mls/hr IV .Q5H STA Stop: 02/04/19 04:10 Last Admin: 02/03/19 23:30 Dose: 100 mls/hr eMAR Start Stop Document 02/03/19 23:30 EB (Rec: 02/03/19 23:30 [email or web address] Intravenous Solution Start Date 02/03/19 Start Time 23:30 Discontinued Medications Famotidine (Pepcid) 20 mg IVP STAT STA Stop: 02/03/19 23:12 Last Admin: 02/03/19 23:29 Dose: 20 mg IVP Administration Document 02/03/19 23:29 EB (Rec: 02/03/19 23:29 [email or web address]) Charges for Administration # of IVP Administrations 1 Morphine Sulfate (Morphine) 4 mg IVP STAT STA Stop: 02/03/19 23:12 Last Admin: 02/03/19 23:29 Dose: 4 mg MAR Pain Assessment Document 02/03/19 23:29 EB (Rec: 02/03/19 23:29 [facility]-[email or web address]) Pain Reassessment Is this a pain reassessment? No Sleep Is patient sleeping during reassessment? No Presence of Pain Presence of Pain Yes Pain Scale Used Protocol: PSCALES Pain Scale Used Numeric Description Intensity of Pain at present 8 IVP Administration Document 02/03/19 23:29 EB (Rec: 02/03/19 23:29 [facility]-[email or web address]) Charges for Administration # of IVP Administrations 1 Ondansetron HCl (Zofran Inj) 4 mg IVP STAT STA Stop: 02/03/19 23:12 Last Admin: 02/03/19 23:30 Dose: 4 mg IVP Administration Document 02/03/19 23:30 EB (Rec: 02/03/19 23:30 [facility]-[email or web address]) Charges for Administration # of IVP Administrations 1 <Serjio Gonzalez - Last Filed: 02/04/19 03:42> - PA / RECEIVING AND PROCESSING SUPERVISOR / Resident Statement ARON has reviewed & agrees with the documentation as recorded. ARON has examined the patient and agrees with the treatment plan. <Mark Vera - Last Filed: 02/04/19 01:59> - PA / RECEIVING AND PROCESSING SUPERVISOR / Resident Statement ARON has reviewed & agrees with the documentation as recorded. ARON has examined the patient and agrees with the treatment plan. <Serjio Gonzalez - Last Filed: 02/04/19 03:42> Disposition/Present on Arrival - Present on Arrival Any Indicators Present on Arrival: No History of DVT/PE: No History of Uncontrolled Diabetes: No Urinary Catheter: No History of Decub. Ulcer: No History Surgical Site Infection Following: None - Disposition Have Diagnosis and Disposition been Completed?: Yes Disposition Time: 02:01 <Mark Vera - Last Filed: 02/04/19 01:59> - Present on Arrival Any Indicators Present on Arrival: No History of DVT/PE: No History of Uncontrolled Diabetes: No Urinary Catheter: No History of Decub. Ulcer: No History Surgical Site Infection Following: None - Disposition Have Diagnosis and Disposition been Completed?: Yes Disposition Time: 02:40 Patient Plan: Observation <Serjio Gonzalez - Last Filed: 02/04/19 03:42> - Disposition Diagnosis: Hypomagnesemia, Abdominal pain, Colitis, Renal infarct, Flank pain Disposition: HOSPITALIZED Patient Problems: Current Active Problems Problem Status Onset Abdominal pain Acute Colitis Acute Flank pain Acute Hypomagnesemia Acute Renal infarct Acute Condition: STABLE
[2019-02-03 23:31] LABS: BASO # 0.01 K/mm3 (0.0-2.0); BASO % 0.1 % (0.0-3.0); EOS % 0.1 % (1.5-5.0); HEMOGLOBIN 16.9 g/dL (14.0-18.0); LYMPH # 1.2 (1.2-3.4); LYMPH % 9.7 % (22.0-35.0); MEAN CELL VOLUME 92.5 fl (80.0-105.0); MEAN CORPUSCULAR HEMOGLOBIN 31.7 pg (25.0-35.0); MEAN CORPUSCULAR HGB CONC 34.3 g/dl (31.0-37.0); MEAN PLATELET VOLUME 10.2 fl (7.0-11.0); MONO # 0.5 (0.1-0.6); MONO % 4.1 % (1.0-6.0); RBC 5.33 10^6/uL (3.5-6.1); RED CELL DISTRIBUTION WIDTH 12.3 % (11.5-14.5)
[2019-02-03 23:47] LABS: ALB/GLOB RATIO 1.2 (1.1-1.8); ALBUMIN 4.4 g/dL (3.0-4.8); ALT/SGPT 46 U/L (7-56); AST/SGOT 65 U/L (17-59); BLOOD UREA NITROGEN 17 mg/dL (7-21); CALCIUM 9.8 mg/dL (8.4-10.5); GFR NON-AFRICAN AMERICAN > 60; LIPASE 52 U/L (23-300)
[2019-02-03 23:58] LABS: TROPONIN I < 0.01 ng/mL
[2019-02-04] MEDS ORDERED: Iohexol 350 MG/100 ML VIAL ONE (00:45)
[2019-02-04] MEDS ORDERED: Magnesium Sulfate 1 gm in D5W 1 GM/100 ML BAG IVPB ONE (01:01)
[2019-02-04] MEDS ORDERED: cefTRIAXone 1 gm 1 GM/100 ML BAG IV STA (02:17)
[2019-02-04] MEDS ORDERED: metroNIDAZOLE IV 500 mg/100 ml 500 MG/100 ML BAG IV STA (02:17)
[2019-02-04 02:23] LABS: URINE BILIRUBIN NEGATIVE (NEGATIVE); URINE BLOOD TRACE-INTACT (NEGATIVE); URINE GLUCOSE (UA) NEGATIVE (NEGATIVE); URINE LEUKOCYTE ESTERASE NEGATIVE Leu/uL (NEGATIVE); URINE PROTEIN 30 mg/dL (<30 mg/dL); URINE UROBILINOGEN 0.2 E.U./dL (<1 E.U./dL)
[2019-02-04] MEDS ORDERED: Sodium Chloride 0.9% 1,000 ML IV STA (02:42)
[2019-02-04 02:45] LABS: URINE APPEARANCE CLEAR (CLEAR); URINE COLOR YELLOW (YELLOW)
[2019-02-04 03:05] LABS: URINE EPITHELIAL CELLS 0 - 2 /hpf (0-5); URINE RBC 0 - 2 /hpf (0-2); URINE WBC 0 - 2 /hpf (0-6)
[2019-02-04] MEDS ORDERED: Enoxaparin 100 mg Syringe SC STA (03:20)
[2019-02-04 04:50] VITALS: BMI 29.2
[2019-02-04 04:50] LABS: INR 1.21; PARTIAL THROMBOPLASTIN TIME 33.5 Seconds (26.9-38.3); PROTHROMBIN TIME 13.4 SECONDS (9.4-12.5)
[2019-02-04] MEDS ORDERED: Morphine 2 mg/ml ISec IVP ONE (05:38)
[2019-02-04] MEDS ORDERED: oxyCODONE 5 mg Immediate Release Tab PO PRN (09:15)
[2019-02-04] MEDS ORDERED: SILDENAFIL CITRATE 50 MG PO PRN (09:15)
--- NOTE | 2019-02-04 10:47 | CT ---
Date of service: 02/04/2019 PROCEDURE: CT Abdomen and Pelvis with contrast HISTORY: lower abdominal pain, nausea/vomiting/diarrhea COMPARISON: None available. TECHNIQUE: CT scan of the abdomen and pelvis was performed after administration of intravenous contrast. Oral contrast was not administered. Coronal and sagittal reformatted images were obtained. Contrast dose: 100 mL Omnipaque 350 Radiation dose: Total exam DLP = 832.89 mGy-cm. This CT exam was performed using one or more of the following dose reduction techniques: Automated exposure control, adjustment of the mA and/or kV according to patient size, and/or use of iterative reconstruction technique. FINDINGS: LOWER THORAX: The visualized lungs are clear. There is mild cardiomegaly. LIVER: Normal in size with homogeneous enhancement. Fatty liver. Nonspecific coarse calcifications in the posterior left hepatic lobe. No gross lesion or ductal dilatation. GALLBLADDER AND BILE DUCTS: Well distended. No calcified gallstones, wall thickening or pericholecystic fluid. PANCREAS: Normal in size with homogeneous enhancement. No gross lesion or ductal dilatation. SPLEEN: Normal in size and appearance. ADRENALS: No discrete nodule. KIDNEYS AND URETERS: Normal in size with homogeneous enhancement. No hydronephrosis. There is an asymmetric triangular low-attenuation area in the upper pole and larger low-attenuation area in the interpolar region of the posterior left kidney. There is nonspecific bilateral perinephric fat stranding. The ureters are not dilated. VASCULATURE: No aortic aneurysm. There are aortic atherosclerotic calcifications present. BOWEL: Evaluation of the bowel is limited in the absence of oral contrast. The small bowel loops are normal in caliber. There is apparent mild circumferential mural thickening in the transverse and left hemicolon. No bowel obstruction. APPENDIX: Normal appendix. PERITONEUM: No free fluid. No free air. LYMPH NODES: No enlarged lymph nodes. BLADDER: Well distended and normal in appearance. REPRODUCTIVE: The prostate gland is normal in size. BONES: No acute fracture. There is diffuse bone demineralization and multilevel degenerative changes in the spine. OTHER FINDINGS: There is a small sliding hiatal hernia. IMPRESSION: 1. Age indeterminate presumable infarctions in the upper pole and interpolar region of the left kidney posteriorly, much larger in the interpolar region. 2. Apparent circumferential mural thickening in the transverse and left hemicolon is nonspecific and could be related to underdistention however nonspecific colitis cannot be entirely excluded follow-up is advised. 3. Additional findings as described above. A preliminary report was provided by [facility].
[2019-02-04 13:01] LABS: BASO # 0.02 K/mm3 (0.0-2.0); BASO % 0.2 % (0.0-3.0); EOS # 0.1 (0.0-0.7); EOS % 0.4 % (1.5-5.0); HEMOGLOBIN 15.5 g/dL (14.0-18.0); LYMPH # 1.8 (1.2-3.4); LYMPH % 15.6 % (22.0-35.0); MEAN CELL VOLUME 94.2 fl (80.0-105.0); MEAN CORPUSCULAR HEMOGLOBIN 31.1 pg (25.0-35.0); MEAN PLATELET VOLUME 10.5 fl (7.0-11.0); MONO # 0.8 (0.1-0.6); MONO % 6.5 % (1.0-6.0); RBC 4.98 10^6/uL (3.5-6.1); RED CELL DISTRIBUTION WIDTH 12.6 % (11.5-14.5); WHITE BLOOD COUNT 11.6 10^3/uL (4.5-11.0)
[2019-02-04 13:33] LABS: BLOOD UREA NITROGEN 17 mg/dL (7-21); CALCIUM 8.6 mg/dL (8.4-10.5); GFR NON-AFRICAN AMERICAN > 60
[2019-02-04] MEDS ORDERED: metroNIDAZOLE IV 500 mg/100 ml 500 MG/100 ML BAG IVPB SCH (14:15)
[2019-02-04] MEDS: cefTRIAXone 1 gm 1 GM/100 ML BAG IVPB SCH (14:31)
[2019-02-04] MEDS: metroNIDAZOLE IV 500 mg/100 ml 500 MG/100 ML BAG IVPB SCH ×2 (14:31→21:16)
--- NOTE | 2019-02-04 16:20 | CON ---
DATE OF CONSULTATION: 02/04/2019 REASON FOR CONSULTATION: Left renal infarct, left renal artery stenosis, ? embolic disease. HISTORY OF PRESENT ILLNESS: A 58-year-old male previously unknown to me. 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 He also had severe diarrhea. He was very nauseous. He had severe lower abdominal pain also. At the time of presentation in the emergency room, his diarrhea had already subsided. He was found to have blood pressure of 171/92. His heart rate was 76. He was found to be afebrile. Initial WBC count in the ER was found to be 12,000 with 86% polys. His BUN was 17. His creatinine was 1.1. He had a CT scan of his abdomen and pelvis with contrast, which showed triangular low-attenuation area and larger low-attenuation area in the interpolar region of the posterior left kidney. The patient was being observed. Currently, he feels much better. He denies any pain. He denies any diarrhea. He denies any nausea or vomiting. He denies any fevers. He denies any chest tightness. The patient has a history of atrial fibrillation for 10 years, CAD, PTCA and stent, hypertension for 10 years. He has been on Pradaxa. PAST MEDICAL/SURGICAL HISTORY: Hypertension, CAD, atrial fibrillation, PTCA and a drug-eluting stent placed in the mid-LAD for in-stent restenosis, hyperlipidemia. FAMILY HISTORY: Hypertension. SOCIAL HISTORY: No smoking. Social alcohol use. No IV drug abuse. MEDICATIONS AT HOME: Sotalol 120 b.i.d., lisinopril 10 mg daily, Pradaxa. ALLERGIES: NO KNOWN DRUG ALLERGIES. REVIEW OF SYSTEMS: All systems are reviewed, pertinent positives as mentioned in the history of presenting illness, rest unremarkable. PHYSICAL EXAMINATION: GENERAL: Elderly male lying in bed. VITAL SIGNS: Blood pressure 137/84, heart rate 84, respiratory rate 18, temperature 98.3. HEENT: Normocephalic, atraumatic, positive pallor. NECK: Supple, no JVD. LUNGS: Bilateral equal air entry, bilateral equal air expansion. CARDIAC: S1 and S2, regular rate rhythm, no murmur, no rub. ABDOMEN: Obese, distended, soft, nontender, bowel sounds present. EXTREMITIES: No lower extremity edema. LABORATORY DATA: WBC 12, hemoglobin 16.9, hematocrit 49, platelets 163,000. Sodium 138, potassium 4.2, chloride 103, CO2 of 24, BUN 17, creatinine 1.1, AST 65, ALT 46, albumin 4.4, globulin 3.7. Urinalysis: Yellow, clear, pH 6.0, specific gravity 1.015, protein 30, glucose negative, blood trace intact. CURRENT MEDICATIONS: Sotalol 120 b.i.d., Lipitor 10, Pradaxa 150 b.i.d., normal saline at 100 mL per hour, Zestril 10. ASSESSMENT: 1. Acute onset lower left-sided back pain, associated with diarrhea, nausea, vomiting. Found to have left renal infarct. 2. History of hypertension. 3. Longstanding history of atrial fibrillation. 4. History of coronary artery disease, percutaneous transluminal coronary angioplasty and stent to the LAD, in-stent stenosis, history of drug-eluting stent in the occluded stent in 10/2017. 5. On anticoagulation. 6. ? Compliance. PLAN: 1. Continue current antihypertensives. 2. Pain management. 3. Repeat labs today including CPK and LDH. 4. Check urine eosinophils, C4 to consider atheroembolic disease. 5. Nuclear renal scan. Case discussed with Dr. Larios. Further recommendations after evaluation of the renal parameters. Bhavya Escalante MD
--- NOTE | 2019-02-04 19:48 | CARD ---
APPROVED REPORT Date of service: 02/04/2019 EKG Measurement Heart [id number] <Conclusion> Atrial fibrillation Left axis deviation Septal infarct, age undetermined Inferior infarct, age undetermined NDSTT abnormalities CCR Abnormal ECG
--- NOTE | 2019-02-04 23:03 | HP ---
DATE OF EXAM: 02/04/2019 HISTORY OF PRESENT ILLNESS: This is a patient is a 58-year-old male, known to me from office practice. The patient states he was driving somewhere on his vehicle, he got excruciating left flank pain associated with left lower quadrant discomfort. He pulled over and went to the rest room. He had a big bowel movement. After that, he feel a little weak and his pain symptoms improved. He rested almost an hour in his car and he then decided to come back home, but came to emergency room for further evaluation. The patient did feel nauseous. He did not have any fever or chills. No history of recent exposure to any sick contact. No history of hematuria. No hemoptysis. No hematemesis. PAST MEDICAL HISTORY: Significant for; 1. Chronic AFib, on Xarelto. 2. He has defibrillator placement, because of poor ejection fraction. 3. Hypertension. 4. History of gout. 5. The patient had angioplasty done back in 2017. 6. History of left hip replacement. ALLERGIES: HE IS NOT ALLERGIC TO ANY MEDICATION. MEDICATIONS AT HOME: He is on Pradaxa 150 mg twice a day, lisinopril 10 mg daily. SOCIAL HISTORY: He is and lives with his . No smoking or drinking. He only drinks wine here and there in social gatherings. PHYSICAL EXAMINATION GENERAL: He is awake and alert. He occasionally has left flank pain. The pain has significantly improved but he is still having discomfort. Denies feeling nauseous anymore. VITAL SIGNS: Afebrile. Pulse 81, respirations 16, blood pressure 127/84. LUNGS: He has bilateral fair airflow. No rhonchi or crackle. HEART: S1 and S2 audible. Irregular rate control. ABDOMEN: Soft. He has got left lower quadrant palpable discomfort. No rebound or guarding. NEUROLOGIC: He is awake and alert, able to communicate. LABORATORY DATA: WBC is 11.6, hemoglobin 15, hematocrit 46, platelet of 155. PT 13.4, INR 1.12. Chemistry; sodium 138, potassium 4.2, chloride 103, CO2 of 24, BUN 17, creatinine 1.1, blood sugar of 127, calcium 9.8, magnesium 1.5. AST 65, ALT 46, LDH is 2015. Troponin is negative. Urinalysis shows trace blood, positive ketones. Flu test is negative. He had CT scan of the abdomen and pelvis done that shows an indeterminate age of upper pole region of left kidney infarction, left larger in the inner polar region, and apparent circumstantial mural thickening in the transverse and left hemicolon, could be in distention versus diverticulitis. ASSESSMENT 1. Descending colitis. 2. Questionable upper pole and interpolar renal infarction. 3. Chronic atrial fibrillation. 4. Coronary artery disease, status post angioplasty. PLAN: The patient is on Pradaxa, we will continue that. He is on Sotalol for rate control, we will continue that also. We will start him on metronidazole, Rocephin, and statins. We will followup his chemistry and we will follow up his electrolytes in a.m. Sadia Larios MD
[2019-02-05] MEDS: metroNIDAZOLE IV 500 mg/100 ml 500 MG/100 ML BAG IVPB SCH ×3 (05:55→21:10)
[2019-02-05 07:48] LABS: BASO # 0.01 K/mm3 (0.0-2.0); BASO % 0.1 % (0.0-3.0); EOS % 0.1 % (1.5-5.0); HEMOGLOBIN 14.8 g/dL (14.0-18.0); LYMPH # 1.4 (1.2-3.4); LYMPH % 9.7 % (22.0-35.0); MEAN CELL VOLUME 93.2 fl (80.0-105.0); MEAN CORPUSCULAR HEMOGLOBIN 30.7 pg (25.0-35.0); MEAN PLATELET VOLUME 10.2 fl (7.0-11.0); MONO # 1.3 (0.1-0.6); MONO % 8.9 % (1.0-6.0); RBC 4.82 10^6/uL (3.5-6.1); RED CELL DISTRIBUTION WIDTH 12.5 % (11.5-14.5); WHITE BLOOD COUNT 14.2 10^3/uL (4.5-11.0)
[2019-02-05 08:05] LABS: ALB/GLOB RATIO 1.1 (1.1-1.8); ALBUMIN 3.6 g/dL (3.0-4.8); ALT/SGPT 64 U/L (7-56); AST/SGOT 78 U/L (17-59); BLOOD UREA NITROGEN 15 mg/dL (7-21); CALCIUM 8.5 mg/dL (8.4-10.5); GFR NON-AFRICAN AMERICAN > 60; HDL CHOLESTEROL 34 mg/dL (29-60)
[2019-02-05 08:11] LABS: LDL CHOLESTEROL 88 mg/dL (0-129)
[2019-02-05] MEDS: Enoxaparin 100 mg Syringe SC SCH ×2 (08:12→21:10)
--- NOTE | 2019-02-05 09:22 | CON ---
DATE: 02/05/2019 REASON FOR CONSULTATION: Left renal infarction. CONSULT REQUESTED BY: Sadia Larios MD. HISTORY OF PRESENT ILLNESS: Mr. Platt is a 58-year-old male admitted with hospital with left lower quadrant pain. CAT scan of the abdomen showed nonspecific colitis, left sided and transverse colon. He also has history of atrial fibrillation, was taking pradaxa at home. CAT scan also showed left renal infarction. He also has a defibrillator placement because of more ejection fraction. No fever. No cough with expectoration. No nausea. No vomiting. PAST MEDICAL HISTORY: Atrial fibrillation, defibrillator placement, hypertension, history of gout, angioplasty done in 2017 and left hip replacement. ALLERGIES: NO KNOWN DRUG ALLERGIES. HOME MEDICATIONS: Lisinopril 10 mg daily, questionable Pradaxa/Xarelto. He was not taking any anticoagulation at home. SOCIAL HISTORY: lives with the . No history of smoking. PAST SURGICAL HISTORY: Angioplasty in 2017. REVIEW OF SYSTEMS: As per HPI. Rest of the 12 point of review of systems reviewed and negative. PHYSICAL EXAMINATION GENERAL: Awake, alert and oriented x3. VITAL SIGNS: Heart rate is 81 per minute, respiratory 16 per minute and blood pressure 127/84. NECK: No lymphadenopathy. CHEST: Air entry present and equal bilateral. No added sounds. CARDIOVASCULAR: S1 and S2 normal. No murmur. No gallop. ABDOMEN: Soft and nontender. No hepatosplenomegaly. EXTREMITIES: No edema. CENTRAL NERVOUS SYSTEM: Alert and oriented x3. No focal sensory or motor deficit. LABORATORY DATA: White count 11.6, hemoglobin 15.5, hematocrit 46.9 and platelets 155. Sodium 138, potassium 3.9, creatinine 1.1, glucose 106, magnesium 1.5, bilirubin 1.2, LDH 2015. CURRENT MEDICATIONS: Tylenol 650 mg every 4 hours p.r.n., Lipitor 10 mg daily, ceftriaxone daily, Pradaxa 150 mg b.i.d., Lisinopril 10 mg daily, Flagyl every 8 hours, oxycodone 5 mg every 4 hours p.r.n. and Sotalol 120 mg p.o. b.i.d. ASSESSMENT 1. History of atrial fibrillation. 2. Left renal infract. 3. Nonspecific colitis. 4. Coronary artery disease. PLAN: Possible left renal infarction on the CAT scan of the abdomen. He was taking pradaxa at home.. I would recommend anticoagulation with Lovenox 90 mg subcutaneous b.i.d. until etiology of left renal lesions can be identified. Hypercoagulable workup to be done. Cardiology consultation has been requested for evaluation for atrial fibrillation and echocardiogram to assess for any source of vegetation for possible renal infarction. We would also recommend GI consultation for nonspecific colitis/ischemic colitis. He will need colonoscopy electively to rule out occult malignancy. Renal functions are within normal limits. Hemoglobin and hematocrit stable. Thank you Dr. Larios for allowing us to participate in Mr. Platt's care. Libby Cruz MD MTDD
[2019-02-05] MEDS: cefTRIAXone 1 gm 1 GM/100 ML BAG IVPB SCH (11:48)
--- NOTE | 2019-02-05 12:03 | CON ---
DATE OF CONSULTATION: 02/05/2019 GASTROENTEROLOGY CONSULTATION REQUESTING PHYSICIAN: Dr. Larios. REASON FOR CONSULTATION/HISTORY OF PRESENT ILLNESS: I have been asked to see this 58-year-old male with a history of atrial fibrillation on Pradaxa, coronary artery disease status post drug-eluting stent placement, hypertension, who comes to the hospital with 1 day of severe left flank pain and lower abdominal pain associated with three episodes of watery diarrhea, nausea, vomiting. He denies any rectal bleeding, melena, hematemesis, fevers or chills. CT scan of the abdomen and pelvis in the emergency room showed low-attenuation area in the interpolar region of the posterior left kidney suggestive of a renal infarct. He also was noted to have nonspecific mural thickening of the transverse and descending colon. The patient denies ingestion of any unusual foods or recent travel. He denies any recent antibiotic use. The patient last had a colonoscopy performed by me 8 years ago. PAST MEDICAL HISTORY: Past medical history is again notable for atrial fibrillation, on Pradaxa; coronary artery disease, status post drug-eluting stent placement; hypertension; hyperlipidemia. SOCIAL HISTORY: He denies cigarette smoking. He consumes alcohol on a social basis. FAMILY HISTORY: Noncontributory. REVIEW OF SYSTEMS: Fourteen-point review of systems is notable for left flank pain, diarrhea, nausea, vomiting. MEDICATIONS: Medications at home include sotalol, lisinopril, and Pradaxa. PHYSICAL EXAMINATION: GENERAL: Obese male, lying in bed, in no acute distress. VITAL SIGNS: Reveal a temperature of 98.3, blood pressure 146/87, heart rate of 88, T-max is 100.8. BMI is 29.3. HEENT: Reveal sclerae to be white. Conjunctivae pink. NECK: Supple. CHEST: Lungs are clear. HEART: Irregular rate and rhythm. ABDOMEN: Obese, soft, nontender. EXTREMITIES: Show no edema. LABORATORY DATA: Revealed white blood cell count 14.2, hemoglobin 14.8. Chemistries reveal BUN 15, creatinine 1, total bilirubin 1.5, AST 78, ALT 64. LDH is 2015. Influenza serology is negative. IMPRESSION: A 58-year-old male with sudden onset of severe left flank pain associated with lower abdominal cramps, nausea, vomiting, and diarrhea. CT findings are suspicious for a left renal infarct. The patient may have an associated nonspecific colitis. I doubt that this is ischemia as ischemic colitis is commonly associated with rectal bleeding, which he denied. Suspect renal infarct is secondary to thromboembolic effect given patient's history of atrial fibrillation. Leukocytosis and elevated LDH are secondary to renal infarct. RECOMMENDATIONS: 1. Continue workup for hypercoagulable state. 2. Continue renal workup for renal artery stenosis. 3. Cardiology evaluation to rule out an intracardiac thrombus. 4. Continue Pradaxa 5. We will arrange the patient to have an outpatient elective colonoscopy. 6. Check stool for C and S and O and P. León Nava MD MTDD
[2019-02-05] MEDS ORDERED: Promethazine DM 6.25 mg-15 mg/5 ml Syrup PO PRN (13:55)
--- NOTE | 2019-02-05 14:15 | CARD ---
APPROVED REPORT Date of service: 02/05/2019 EXAM: Two-dimensional and M-mode echocardiogram with Doppler and color Doppler. INDICATION R/O THROMBUS 2D DIMENSIONS RVDd3.4 (2.9-3.5cm)Left Atrium (2D)5.6 (1.6-4.0cm) IVSd1.3 (0.7-1.1cm)LVDd6.1 (3.9-5.9cm) PWd1.1 (0.7-1.1cm)LVDs5.1 (2.5-4.0cm) FS (%) 16.6 %LVEF (%)34.1 (>50%) M-Mode DIMENSIONS Aortic Root3.80 (2.2-3.7cm)Aortic Cusp Exc.1.80 (1.5-2.0cm) Aortic Valve AoV Peak Lkaqhmka894.0cm/Lonnie Peak GR.10mmHg Mitral Valve E/A ratio0.0 TDI E/Lateral E'0.0E/Medial E'0.0 Pulmonary Valve PV Peak Bunohcwn63.0cm/sPV Peak Grad.2mmHg Tricuspid Valve TR Peak [id number]/sRAP [id number] Peak Gr.26mmHg [id number] LEFT VENTRICLE The left ventricle is normal size. There is normal left ventricular wall thickness. The systolic function is moderately impaired.EF-35% There is normal LV segmental wall motion. diastolic fx could not be assessed B/c of A fib. No left ventricle thrombus noted on this study. There is no ventricular septal defect visualized. There is no left ventricular aneurysm. RIGHT VENTRICLE The right ventricle is normal size. There is normal right ventricular wall thickness. The right ventricular systolic function is normal. There is a pacemaker lead in the right ventricle. ATRIA The left atrium is mildly dilated. The right atrium is borderline dilated. There is a catheter/pacemaker lead seen in the right atrium. The interatrial septum is intact with no evidence for an atrial septal defect. AORTIC VALVE The aortic valve is thickened but opens well. No aortic regurgitation is present. There is no aortic valvular stenosis. There is no aortic valvular vegetation. MITRAL VALVE The mitral valve is thickened but opens well. Mitral regurgitation is mild to moderate. There is no mitral valve stenosis. There is no evidence of mitral valve prolapse. TRICUSPID VALVE The tricuspid valve leaflets are thickened , but open well. There is mild tricuspid regurgitation.RVSP-36 mmof hg. There is no tricuspid valve stenosis. There is no tricuspid valve prolapse or vegetation. PULMONIC VALVE The pulmonary valve is normal in structure. There is no pulmonic valvular regurgitation. There is no pulmonic valvular stenosis. GREAT VESSELS The aortic root is normal in size. The ascending aorta is normal in size. The pulmonary artery is normal. The IVC is normal in size and collapses >50% with inspiration. PERICARDIAL EFFUSION There is no pleural effusion. There is no pericardial effusion. <Conclusion> The left ventricle is normal size. There is normal left ventricular wall thickness. LV systolic Fx is moderrately reduced. REF-35% pt. was in a fib at the time of study. Mitral regurgitation is mild to moderate. There is mild tricuspid regurgitation.RVSP-36 mmof hg. The IVC is normal in size and collapses >50% with inspiration. There is no pericardial effusion. PPm/ AICD lead noted in RA/RV. No thrombus or vegetation noterd
--- NOTE | 2019-02-05 16:24 | NM ---
Date of service: 02/05/2019 PROCEDURE: Renal scan and flow study HISTORY: Renal infarct suspected based on recent CT scan asymmetric triangular low-attenuation area in the upper and lower poles of the left kidney. COMPARISON: 02/04/2019. CT abdomen and pelvis. TECHNIQUE: 9.7 mCi technetium 99 M Mag 3 administered intravenously. FINDINGS: Right Kidney: Flow component: Normal perfusion to the right kidney. Time to peak: 3.4 min Peak to T1/2 Peak: 8 min Left Kidney: Flow component: Normal flow to the left kidney. There are perfusion abnormalities primarily in the upper and to lesser extent lower pole of the left kidney consistent with findings on recent CT scan. Time to peak: 3.4 min Peak to T1/2 Peak: 9 min Split Renal Function: Right kidney 56.8 % Left kidney 43.2 % IMPRESSION: Normal flow to the left kidney, diminished areas of perfusion left kidney corresponding findings on recent CT scan consistent with cortical infarction. In addition this is reflected in depressed left renal function 43.2% compared to 56.8% for the right kidney.
--- NOTE | 2019-02-05 19:02 | PN ---
DATE: 02/05/2019 SUBJECTIVE: The patient is seen sitting in chair. He is awake, he is alert, is comfortable. He denies any lower abdominal pain. He denies any back pain. PHYSICAL EXAMINATION: GENERAL: Elderly male lying in bed. VITAL SIGNS: Blood pressure 150/98, heart rate 88, respiratory rate 20, temperature 98.3, T-max is 100.8. HEENT: Normocephalic, atraumatic, positive pallor. NECK: Supple, no JVD. LUNGS: Bilateral equal air entry, bilateral equal expansion. CARDIAC: S1 and S2, regular rate and rhythm, no murmur, no rub. ABDOMEN: Obese, distended, soft, nontender, bowel sounds present. EXTREMITIES: No lower extremity edema. LABORATORY DATA: WBC 14, hemoglobin 14.8, hematocrit 44.9 and platelets 128. Sodium 135, potassium 3.8, chloride 103, CO2 of 28, BUN 15, creatinine 1, glucose 115, calcium 8.5, total bili 1.5, AST 78, ALT 64, LDH 2015, albumin 3.6. Complement C4 was 22.8. CURRENT MEDICATIONS: Betapace 120 b.i.d., Lipitor 10, Lovenox, Rocephin 1 g daily, Tylenol, lisinopril 10. ASSESSMENT: 1. Left lower quadrant pain with diarrhea, also left lower back pain,? gastroenteritis. 2. Left renal infarction. 3. Atrial fibrillation. 4. Coronary artery disease, percutaneous transluminal coronary angioplasty and stent, decreased ejection fraction, congestive heart failure. 5. On chronic anticoagulation, the patient reports that he was taking his Pradaxa. PLAN: 1. Blood pressure is suboptimally controlled, increase lisinopril to 10 b.i.d. 2. Follow up renal scan to see function in both the kidneys. 3. Continue max dose of lipid-lowering therapy. 4. Continue rate control with sotalol. 5. Repeat LDH. 6. No intervention needed if his renal parameters are stable and blood pressure is well controlled. Bhavya Escalante MD
--- NOTE | 2019-02-06 01:32 | PN ---
DATE: 02/05/2019 SUBJECTIVE: The patient is 58-year-old, seen and examined. Still has left flank pain but much better than before, about 2/10. He is eating and tolerating. No fever or chills. No nausea or vomiting. PHYSICAL EXAMINATION: VITAL SIGNS: He has a temperature of 99.7, pulse 89, respirations 20, blood pressure 147/90. LUNGS: Bilateral fair airflow. No rhonchi or crackle. HEART: S1 and S2 audible. ABDOMEN: Soft. Left lower quadrant discomfort but no rebound or guarding. NEUROLOGIC: He is awake and alert. Able to communicate. LABORATORY EXAM: WBC 14.2, hemoglobin 14.8, hematocrit 44.9, platelets of 128. Chemistries: Sodium 135, potassium 3.8, chloride 103, CO2 of 29, BUN 15, creatinine 1. Blood sugar of 115, total bili 1.5, AST 78, ALT 64, LDH is 2344. His blood cultures are negative. He has a renal nuclear scan done that shows a normal flow to the left kidney, diminished areas of perfusion left kidney. Corresponding findings of the recent CT scan consistent with cortical infarction. His echocardiogram was done that shows left ventricle is normal in size. He has normal left ventricular wall thickness. Ejection fraction is 35%, mitral regurgitation. There is a mild tricuspid regurgitation. No pericardial effusion. No thrombus or vegetation noted. ASSESSMENT AND PLAN: 1. Segmental left cortical renal infarct, etiology unclear. 2. Colitis. Discussed with Dr. Nava. Does not seem to be ischemic colitis. The patient does not have history of any bloody stool. 3. Leukocytosis, etiology unclear. 4. Hypertension. 5. Hyperlipidemia. 6. Ischemic cardiomyopathy. 7. Chronic atrial fibrillation. 8. Status post automatic implantable cardiac defibrillator placement. Plan is, we will continue the patient on IV antibiotics. He is on IV fluid. Ordered for abdominal Duplex study for superior mesenteric and inferior mesenteric artery. Echocardiogram seems to be unremarkable. We will follow up with kidney function, and his coagulation workup has been sent. We will order for CBC, CMP, and LDH for the morning. He still needs further workup. We will make his inpatient. We will follow up his CBC, CMP, LFTs in a.m., and I will discuss with other consultants. We will follow up Doppler study of his abdomen superior and inferior mesenteric arteries. Continue him on Pradaxa. Coagulation workup has been ordered. We will follow the patient in a.m. Sadia Larios MD
[2019-02-06] MEDS: metroNIDAZOLE IV 500 mg/100 ml 500 MG/100 ML BAG IVPB SCH ×2 (05:21→14:16)
[2019-02-06 07:22] VITALS: O2SAT 96
[2019-02-06 07:45] LABS: BASO # 0.01 K/mm3 (0.0-2.0); BASO % 0.1 % (0.0-3.0); EOS % 0.1 % (1.5-5.0); LYMPH # 1.4 (1.2-3.4); LYMPH % 9.6 % (22.0-35.0); MEAN CELL VOLUME 92.6 fl (80.0-105.0); MEAN CORPUSCULAR HEMOGLOBIN 30.7 pg (25.0-35.0); MEAN CORPUSCULAR HGB CONC 33.2 g/dl (31.0-37.0); MEAN PLATELET VOLUME 10.3 fl (7.0-11.0); MONO # 1.3 (0.1-0.6); MONO % 8.6 % (1.0-6.0); RBC 4.88 10^6/uL (3.5-6.1); RED CELL DISTRIBUTION WIDTH 12.3 % (11.5-14.5); WHITE BLOOD COUNT 14.9 10^3/uL (4.5-11.0)
--- NOTE | 2019-02-06 07:48 | CON ---
DATE: 02/05/2019 REQUESTING PHYSICIAN: Dr. Larios. REASON FOR CONSULTATION: Atrial fibrillation, renal infarcts. HISTORY: This is a 58-year-old man, well known to me, with a history of coronary artery disease status post PCI of his LAD in the past as well as severe left ventricular dysfunction and paroxysmal atrial fibrillation. He was admitted with complaints of severe left flank pain. He presented to the emergency room for evaluation. His workup has included a CT of the abdomen and pelvis showing evidence of bilateral renal infarcts as well as possible colitis changes. He is feeling somewhat better. He has been maintained on Xarelto for his chronic atrial fibrillation. His past history is notable for the problems mentioned above. He underwent PCI of his LAD in 2017 with a restenosis. He has severe LV dysfunction and underwent ICD implant in the past. He also has a history of prior left hip replacement surgery, hypertension and gout. HOME MEDICATIONS: His medications at home include sotalol 120 mg b.i.d., Zestril 10 mg daily, and enoxaparin. SOCIAL HISTORY: He does not smoke. He drinks alcohol occasionally. ALLERGIES: None. FAMILY HISTORY: Both parents are from age-related illness. REVIEW OF SYSTEMS: A 10-point review of systems is notable mainly for the problems mentioned above. PHYSICAL EXAMINATION: GENERAL: He is a middle-aged man, who appears comfortable at rest. VITAL SIGNS: His blood pressure is 146/80 with a pulse of 90, respirations are 16. He is afebrile. HEENT: Normocephalic, atraumatic. NECK: Supple. Carotid upstrokes 1+ bilaterally. CHEST: Reveals a few scattered rhonchi. HEART: PMI is displaced laterally. Soft tones noted. A systolic murmur is noted at the lower left sternal border. ABDOMEN: Soft. Bowel sounds are present. Mild diffuse tenderness noted. EXTREMITIES: No clubbing, cyanosis, or edema. SKIN: Warm and dry. PSYCHIATRIC: Normal mood and affect. NEUROLOGIC: Alert and oriented x3. No gross motor or sensory deficits notable. LABORATORY DATA: Potassium is 3.8, BUN and creatinine are 15 and 1. White count 14.3, hemoglobin and hematocrit 14.8 and 44.9 with a platelet count of 128,000. AST and ALT 78 and 64 with an LDH of 2344. Cholesterol 145, HDL 34, LDL 88, triglycerides 65. Electrocardiogram reveals atrial fibrillation with a leftward axis and nonspecific ST-T abnormalities. A prior anteroseptal and inferior infarct pattern is noted. A chest x-ray will be reviewed. IMPRESSION: 1. Recent flank pain, appears consistent with renal infarct noted on CT scan. This appears most likely due to the cardiac thromboembolic events given his atrial fibrillation despite anticoagulant therapy. The possibility of a hypercoagulable state also needs to be considered and workup is pending. 2. Chronic congestive heart failure, systolic, appears compensated at the present time. 3. Known coronary artery disease status post prior PCI, stable at present. 4. Elevated transaminases, exact etiology uncertain. RECOMMENDATIONS: His current medications will be continued for now. Hypercoagulable workup is in progress. Continued anticoagulant therapy is indicated. We await his hypercoagulable workup results. If he continues to have evidence of embolic events in the presence of therapeutic anticoagulant therapy, the addition of aspirin and other antiplatelet agents will need to be considered. Thank you for this consultation. I will be happy to follow along as needed. Joe Turner MD
[2019-02-06 08:09] LABS: ALBUMIN 3.3 g/dL (3.0-4.8); ALT/SGPT 43 U/L (7-56); AST/SGOT 46 U/L (17-59); BLOOD UREA NITROGEN 12 mg/dL (7-21); CALCIUM 8.5 mg/dL (8.4-10.5); GFR NON-AFRICAN AMERICAN > 60
[2019-02-06] MEDS: Enoxaparin 100 mg Syringe SC SCH (09:02)
[2019-02-06] MEDS: cefTRIAXone 1 gm 1 GM/100 ML BAG IVPB SCH (09:04)
--- NOTE | 2019-02-06 10:40 | US ---
PROCEDURE: Duplex ultrasound of the mesenteric arteries. HISTORY: Abdominal pain. Evaluate for mesenteric ischemia. PHYSICIAN(S): Kaiden Restrepo MD. TECHNIQUE: Duplex sonography with color-flow Doppler was used to evaluate limited segments of the abdominal aorta and proximal segments of the mesenteric arteries. FINDINGS: The exam is extremely limited by bowel gas and body habitus. The mesenteric arteries are not adequately visualized. IMPRESSION: 1. Inadequate visualization of the mesenteric arteries. If suspicion for mesenteric ischemia is high, additional imaging with an MRA or CTA can be considered
--- NOTE | 2019-02-06 13:00 | PN ---
DATE: 02/06/2019 SUBJECTIVE: The patient is seen lying in bed on 5R. He states he feels improved. He denies any abdominal or flank pain. His current medications include sotalol 120 mg b.i.d., Lipitor 10 mg daily, Lovenox, Rocephin, and Zestril 10 mg b.i.d. PHYSICAL EXAMINATION: GENERAL: He is a middle-aged man who appears comfortable at the present time. VITAL SIGNS: Blood pressure is 156/80 with pulse of 90, respirations are 14. Temperature overnight was 100. HEENT: No JVD. CHEST: Few scattered rhonchi heard. HEART: PMI displaced laterally with soft tones noted. ABDOMEN: Soft, nontender with normoactive bowel sounds. EXTREMITIES: No edema. DIAGNOSTIC DATA: White count is 14.9, hemoglobin and hematocrit are 15 and 45.2 with a platelet count 121,000. Echocardiogram revealed moderately reduced LV systolic function with [id number] mitral regurgitation and mild tricuspid regurgitation. Renal scan showed findings consistent with recent cortical infarcts. IMPRESSION: 1. Bilateral renal infarcts suspect this is due to an embolic event. The patient claims compliance with Pradaxa use most of the time. 2. Known cardiomyopathy, stable and compensated at the present time. 3. Coronary artery disease status post remote percutaneous coronary intervention of his left anterior descending, clinically stable. 4. Paroxysmal atrial fibrillation, remains on sotalol therapy at the present time. RECOMMENDATIONS: Anticoagulant therapy should continue at this time. A hypercoagulable workup is in progress to exclude that as a cause of his recent events, improved blood pressure control is advised. His current cardiac medications should continue unchanged. I will be happy to follow along as needed. Joe Turner MD
--- NOTE | 2019-02-06 13:50 | PN ---
DATE: 02/06/2019 SUBJECTIVE The patient is currently seen lying comfortable in bed. He remains in atrial fibrillation. The patient has no abdominal pain. He has no complaints. MEDICATIONS: Medication list reviewed. The patient is currently on Betapace, Flagyl, Lipitor, Lovenox, p.r.n., oxycodone, Phenergan, Rocephin, Tylenol and lisinopril. OBJECTIVE: INTAKE/OUTPUT: Intake is 1240, output is 300. VITAL SIGNS: Blood pressure 134-157 systolic, diastolic 82-85. Temperature 99. Respiratory rate 20 with a pulse of 90. HEENT: Exam shows him to be normocephalic, atraumatic. Conjunctivae are pink. Sclerae nonicteric. NECK: Supple. No neck vein distention. CHEST: Clear to auscultation and percussion. No rales, rhonchi or wheezing. CARDIOVASCULAR: An irregular S1 and S2. Positive MR/TR. Positive AICD. No S3. No S4. No rub. ABDOMEN: Soft. Bowel sounds normal. No rebound, guarding or masses. EXTREMITIES: No lower extremity cyanosis, clubbing or edema. LABORATORY DATA AND IMAGING STUDIES: CBC; white blood cell count today 14.9 with a hemoglobin of 15 and a platelet count of 121,000. Chemistry shows normal electrolytes. BUN 12 with a creatinine of 1.1. Bilirubin 1.6. Liver enzymes are now normal. LDH is elevated at 1977, but dropping. Albumin is 3.3. Urinalysis was unremarkable. C4 level was 23. Influenza serologies were negative. Microbiology, blood cultures are negative at 48 hours. ASSESSMENT: 1. Left cortical renal infarct, left kidney is providing 43% of function with the right kidney providing 57% of function. Nevertheless, creatinine remains normal. 2. History of atrial fibrillation. 3. History of coronary artery disease status post percutaneous transluminal coronary angioplasty stent. Past history of congestive heart failure. He has history of automatic implantable cardioverter-defibrillator. Mitral regurgitation/tricuspid regurgitation. On chronic anticoagulation of atrial fibrillation. The patient in the outpatient setting of taking Pradaxa. He is currently on Lovenox. 4. Status post lower quadrant abdominal pain with diarrhea. The patient was seen by Gastroenterology and cleared. Perhaps mild colitis. 5. History of hyperlipidemia, stable on statin therapy. 6. History of hypertension. Blood pressure is controlled on present beta-faisal therapy. 7. Low-grade fevers. The patient remains on empiric antibiotic therapy with negative cultures. PLAN: 1. The patient is entirely stable from a renal standpoint. Agree with chronic anticoagulation in light of his renal cortical infarct and history of atrial fibrillation. 2. Follow up with cardiology. The patient remains on sotalol. 3. Expect LDH to fall gradually over time. Serjio Don MD
[2019-02-06 15:03] VITALS: PULSE 81; RESP 14
[2019-02-06 16:28] VITALS: TEMP 99.8
[2019-02-06 17:35] VITALS: BP 138/82
--- NOTE | 2019-02-06 17:51 | PN ---
DATE: 02/06/2019 SUBJECTIVE: The patient is sitting in chair comfortably. He denies any abdominal pain, diarrhea, rectal bleeding, nausea, vomiting or hematuria. OBJECTIVE: VITAL SIGNS: Reveal temperature of 99, blood pressure 157/82, heart rate 90. HEENT: Reveal sclerae to be white. Conjunctivae pink. NECK: Supple. CHEST: Reveal lungs to be clear. He has an AICD below his left clavicle. HEART: Reveals regular rate and rhythm. ABDOMEN: Obese, soft, nontender. EXTREMITIES: Show no edema. LABORATORY DATA: Reveal white blood cell count 14.9, hemoglobin 15. Chemistries reveal normal electrolytes. Total bilirubin of 1.6. AST, ALT, alk phos were all normal. LDH is trending downward to 1977. Renal scan shows good perfusion, good flow to the left kidney. There is absence of perfusion in the area of renal infarct on CT scan. Duplex scan of the mesenteric arteries was nondiagnostic due to excess bowel gas and body habitus. IMPRESSION: 1. Renal infarct, most likely thromboembolic. Elevated LDH and leukocytosis due to renal infarct. 2. The patient has a history of atrial fibrillation, on Pradaxa. Echocardiogram did not show thrombus. Clinically, the patient does not have ischemic colitis. The CT findings were nonspecific. He denies any diarrhea, rectal bleeding. RECOMMENDATIONS: Continue current treatment as per Nephrology and Hematology. Rule out hypercoaguable state. The patient will follow up with me for an elective outpatient colonoscopy. León Nava MD [facility]TD[facility]
--- NOTE | 2019-02-07 03:33 | DS ---
HOSPITAL COURSE: The patient is 58 years old, who came to emergency room with left flank pain. Initial impression was renal colic, but CAT scan shows nonspecific colitis and he was found to have segmental renal infarct. Workup was done. His echocardiogram is unremarkable. Renal scan showed normal flow to the left kidney diminished areas of perfusion left kidney corresponding finding on recent CT scan consistent cortical infarction. In addition, there is reflected and depressed left renal function 43% compared to 56% to the right kidney. The patient was given IV fluid, IV antibiotic, was seen by Dr. Turner, the soil chemist and also seen by seen by Dr. Nava, the patient was seen by freight handler, coagulation workup has been started. PAST MEDICAL HISTORY: Significant for; 1. Dilated cardiomyopathy. 2. Coronary artery disease. 3. Status post angioplasty. 4. Status post defibrillator placement. ALLERGIES: THE PATIENT IS NOT ALLERGIC TO ANY MEDICATIONS. PHYSICAL EXAMINATION: GENERAL: Today, he is awake, alert, oriented, anxious to go home. VITAL SIGNS: He is earlier afebrile, but then he spiked fever of 100.7, he was given Tylenol and he normalized. Otherwise, pulse is 81, respiration 14, and blood pressure 138/82. LUNGS: Bilateral fair airflow. No rhonchi or crackles. HEART: S1 and S2 audible. ABDOMEN: Soft and nontender. No rebound and no guarding. NEUROLOGIC: The patient is awake, alert, and able to communicate. LABORATORY DATA: WBC is 14.9, hemoglobin 15, hematocrit 45, and platelet 121. Chemistry; sodium 137, potassium 3.6, chloride 100, CO2 of 28, BUN 12, creatinine 1.1, and blood sugar of 98. RAZIA negative, complement level is 22.8. Flu test is negative. ASSESSMENT AND PLAN: 1. Right flank pain, probably secondary to renal infarction. 2. Dilated cardiomyopathy. 3. Status post defibrillator placement. 4. Hypertension. 5. Coronary artery disease. Plan is, patient is being discharged home on sotalol 120 mg twice a day and he is on lisinopril 10 mg daily, and he is on aspirin 81 mg daily. He is advised to follow up in office next week to follow up his WBC and if he spikes fever, he has to go back to emergency room. Sadia Larios MD [facility] # [id number]
[2019-02-07 13:19] LABS: B2 GLYCOPROTEIN I AB(IGA) <9 SAU (<=20); B2 GLYCOPROTEIN I AB(IGG) <9 SGU (<=20); B2 GLYCOPROTEIN I AB(IGM) <9 SMU (<=20)
[2019-02-07 15:03] LABS: CARDIOLIPIN AB (IGA) <11 APL (<=11); CARDIOLIPIN AB (IGG) <14 GPL (<=14); CARDIOLIPIN AB (IGM) <12 MPL (<=12)
[2019-02-07 19:25] LABS: PHOSPHATIDYLSERINE AB IGA <20 U/mL (<20); PHOSPHATIDYLSERINE AB IGG <10 U/mL (<10); PHOSPHATIDYLSERINE AB IGM <25 U/mL (<25)
== END 2019-02-06 21:12 | disposition home or self-care (01) ==
LOC: ED 21:53 → ERH 02-04 02:40 → 5RSO 02-04 04:22 → OBSVTOIN 02-05 19:50 → INTOOBSV 02-05 19:50
PROVIDERS: ADMIT Internal Medicine; ATTEND Internal Medicine
DX: N28.0 Ischemia and infarction of kidney (principal); I50.22 Chronic systolic (congestive) heart failure; I42.0 Dilated cardiomyopathy; D68.59 Other primary thrombophilia; K52.9 Noninfective gastroenteritis and colitis, unspecified; E78.5 Hyperlipidemia, unspecified; K57.30 Diverticulosis of large intestine without perforation or abscess without bleeding; I48.0 Paroxysmal atrial fibrillation; I25.10 Atherosclerotic heart disease of native coronary artery without angina pectoris; I11.0 Hypertensive heart disease with heart failure; I25.5 Ischemic cardiomyopathy; I48.2 Chronic atrial fibrillation; E83.42 Hypomagnesemia; I08.1 Rheumatic disorders of both mitral and tricuspid valves; M10.9 Gout, unspecified; Z79.01 Long term (current) use of anticoagulants; Z95.810 Presence of automatic (implantable) cardiac defibrillator; Z95.5 Presence of coronary angioplasty implant and graft; Z96.642 Presence of left artificial hip joint
CPT/HCPCS: 36415; 74177; 78707; 80048; 80053; 80061; 81001; 81240; 81241; 81291; 82550; 83615; 83690; 83735; 84484; 85025; 85300; 85303; 85305; 85306; 85610; 85730; 86039; 86146; 86147; 86148; 86160; 87040; 87804; 93005; 93306; 93975; 96365; 96367; 96372; 96375; 96376; 99285; A9562; G0378; J0696; J1650; J2270; J2405; J3475; J7030; J7040; Q9967